=== PATIENT | male | born 1950 | race Caucasian/White ===

== ENCOUNTER 2017-06-26 10:12 | Emergency (ER) | payer MEDICARE, OTHER ==
[2017-06-26] MEDS ORDERED: SODIUM CHLORIDE 0.9% 500 ML IV ONE (10:35)
--- NOTE | 2017-06-26 10:36 | ED ---
General Adult HPI - General Chief complaint: Arrhythmia/Palpitations Stated complaint: A fib Time Seen by Provider: 06/26/17 10:20 Source: patient, RN notes reviewed, old records reviewed Mode of arrival: wheelchair Limitations: physical limitation - History of Present Illness Initial comments: 67-year-old male history of A. fib presents with palpitations and racing heartbeat. Patient does have an application on his phone that the techs A. fib , he states he used this and noted that he was in atrial fibrillation. He is currently on metoprolol and flecainide. He denies missing any of these medications. He has been prescribed Eliquis but has not taken this in the past several weeks. Patient denies chest pain. Denies dyspnea. Denies any lower extremity pain or swelling. Denies fever or chills. Denies cough or URI symptoms. Denies headache or vision changes. - Related Data Home Medications Medication Instructions Recorded Confirmed Atorvastatin [Lipitor] 20 mg PO HS 04/02/14 06/26/17 Ginko Biloba 1 tab PO BID 04/02/14 06/26/17 HYDROcodone/APAP 10-325MG [[place] 1 tab PO DAILY PRN 04/02/14 06/26/17 10] amLODIPine [Norvasc] 5 mg PO DAILY 04/02/14 06/26/17 fentaNYL 50MCG/HR PATCH [Duragesic 1 patch TRANSDERM Q72H 04/02/14 06/26/17 50Mcg/Hr Patch] Metoprolol Succinate [Toprol XL] 50 mg PO BID 04/15/14 06/26/17 Citalopram Hydrobromide [CeleXA] 20 mg PO DAILY 06/26/17 06/26/17 Flecainide [Tambocor] 50 mg PO BID 06/26/17 06/26/17 Ginkgo Biloba [place] Extract [Ginkgo] 120 mg PO BID 06/26/17 06/26/17 Allergies Allergy/AdvReac Type Severity Reaction Status Date / Time No Known Allergies Allergy Verified 06/26/17 11:06 Review of Systems ROS Statement: Those systems with pertinent positive or pertinent negative responses have been documented in the HPI. ROS Other: All systems not noted in ROS Statement are negative. Past Medical History Past Medical History: Atrial Fibrillation, Cancer, Hyperlipidemia, Hypertension Additional Past Medical History / Comment(s): chronic back pain, prostate cancer History of Any Multi-Drug Resistant Organisms: None Reported Past Surgical History: Appendectomy, Back Surgery, Prostate Surgery Past Anesthesia/Blood Transfusion Reactions: No Reported Reaction Past Psychological History: Depression Smoking Status: Current some day smoker Past Alcohol Use History: Occasional Past Drug Use History: None Reported - Past Family History Brother(s) Family Medical History: Cancer Additional Family Medical History / Comment(s): prostate Mother Family Medical History: Cancer Additional Family Medical History / Comment(s): breast General Exam Limitations: physical limitation General appearance: alert, in no apparent distress Head exam: Present: atraumatic, normocephalic Eye exam: Present: normal appearance, PERRL ENT exam: Present: normal exam Neck exam: Present: normal inspection. Absent: tenderness, meningismus Respiratory exam: Present: normal lung sounds bilaterally. Absent: respiratory distress, wheezes Cardiovascular Exam: Present: tachycardia, irregular rhythm GI/Abdominal exam: Present: soft. Absent: distended, tenderness, guarding Extremities exam: Present: normal inspection, normal capillary refill. Absent: pedal edema, calf tenderness Neurological exam: Present: alert, oriented X3. Absent: CN II-XII intact, motor sensory deficit Psychiatric exam: Present: normal affect, normal mood Skin exam: Present: warm, dry, intact. 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 fib with RVR and PVC. Ventricular rate of 120, QRS duration 86, QTC 472. Repeat EKG obtained at 1150, atrial fibrillation ventricular rate of 82, QRS duration 76, QTC 429, no ST segment elevation or depression. Rate controlled A. fib Medical Decision Making - Medical Decision Making 67 yo male presenting with palpitations. Initial EKG shows atrial fibrillation with RVR. Patient is given 500 mL normal saline bolus and 2.5 of metoprolol. He did take his flecainide and metoprolol this morning. He has not been taking his Eliquis for the past several weeks. Workup in the emergency department: Chest x-ray, negative for acute cardiopulmonary disease, normal white blood cell count, stable he will, negative troponin. Patient did develop a moment of superior anterior chest pain which was very minimal. Lasted just minutes while in the emergency department. He has no pain and his palpitations are resolving. Patient is offered observation for cardiology consultation. He prefers outpatient follow-up. He will restart his Eliquis, he will return with any worsening or changing symptoms: Including chest pain, palpitations or dyspnea. - Lab Data Result diagrams: 06/26/17 10:35 06/26/17 10:35 Lab Results 06/26/17 06/26/17 06/26/17 Range/Units 10:35 10:35 10:35 WBC 5.2 (3.8-10.6) k/uL RBC 5.58 (4.30-5.90) m/uL Hgb 15.1 (13.0-17.5) gm/dL Hct 46.5 (39.0-53.0) % MCV 83.3 (80.0-100.0) fL MCH 27.0 (25.0-35.0) pg MCHC 32.4 (31.0-37.0) g/dL RDW 13.7 (11.5-15.5) % Plt Count 223 (150-450) k/uL Neutrophils % 63 % Lymphocytes % 24 % Monocytes % 8 % Eosinophils % 2 % Basophils % 1 % Neutrophils # 3.3 (1.3-7.7) k/uL Lymphocytes # 1.3 (1.0-4.8) k/uL Monocytes # 0.4 (0-1.0) k/uL Eosinophils # 0.1 (0-0.7) k/uL Basophils # 0.1 (0-0.2) k/uL PT (9.0-12.0) sec INR (<1.2) APTT (22.0-30.0) sec Sodium 141 (137-145) mmol/L Potassium 4.9 (3.5-5.1) mmol/L Chloride 106 (98-107) mmol/L Carbon Dioxide 22 (22-30) mmol/L Anion Gap 13 mmol/L BUN 16 (9-20) mg/dL Creatinine 0.76 (0.66-1.25) mg/dL Est GFR (CKD-EPI)AfAm >90 (>60 ml/min/1.73 sqM) Est GFR (CKD-EPI)NonAf >90 (>60 ml/min/1.73 sqM) Glucose 145 H (74-99) mg/dL Calcium 9.5 (8.4-10.2) mg/dL Magnesium 2.4 H (1.6-2.3) mg/dL Total Bilirubin 0.7 (0.2-1.3) mg/dL AST 40 (17-59) U/L ALT 36 (21-72) U/L Alkaline Phosphatase 49 (38-126) U/L Total Creatine Kinase 126 (55-170) U/L CK-MB (CK-2) 0.9 (0.0-2.4) ng/mL CK-MB (CK-2) Rel Index 0.7 Troponin I <0.012 (0.000-0.034) ng/mL Total Protein 7.4 (6.3-8.2) g/dL Albumin 4.3 (3.5-5.0) g/dL 06/26/17 Range/Units 10:35 WBC (3.8-10.6) k/uL RBC (4.30-5.90) m/uL Hgb (13.0-17.5) gm/dL Hct (39.0-53.0) % MCV (80.0-100.0) fL MCH (25.0-35.0) pg MCHC (31.0-37.0) g/dL RDW (11.5-15.5) % Plt Count (150-450) k/uL Neutrophils % % Lymphocytes % % Monocytes % % Eosinophils % % Basophils % % Neutrophils # (1.3-7.7) k/uL Lymphocytes # (1.0-4.8) k/uL Monocytes # (0-1.0) k/uL Eosinophils # (0-0.7) k/uL Basophils # (0-0.2) k/uL PT 10.2 (9.0-12.0) sec INR 1.0 (<1.2) APTT 24.9 (22.0-30.0) sec Sodium (137-145) mmol/L Potassium (3.5-5.1) mmol/L Chloride (98-107) mmol/L Carbon Dioxide (22-30) mmol/L Anion Gap mmol/L BUN (9-20) mg/dL Creatinine (0.66-1.25) mg/dL Est GFR (CKD-EPI)AfAm (>60 ml/min/1.73 sqM) Est GFR (CKD-EPI)NonAf (>60 ml/min/1.73 sqM) Glucose (74-99) mg/dL Calcium (8.4-10.2) mg/dL Magnesium (1.6-2.3) mg/dL Total Bilirubin (0.2-1.3) mg/dL AST (17-59) U/L ALT (21-72) U/L Alkaline Phosphatase (38-126) U/L Total Creatine Kinase (55-170) U/L CK-MB (CK-2) (0.0-2.4) ng/mL CK-MB (CK-2) Rel Index Troponin I (0.000-0.034) ng/mL Total Protein (6.3-8.2) g/dL Albumin (3.5-5.0) g/dL Disposition Clinical Impression: Atrial fibrillation Disposition: HOME SELF-CARE Condition: Fair Instructions: Palpitations (ED), A-fib (Atrial Fibrillation) (ED) Is patient prescribed a controlled substance at discharge?: No Referrals: Carlos Pedroza DO [Primary Care Provider] - 1-2 days Carlitos Beavers MD [STAFF PHYSICIAN] - 1-2 days Time of Disposition: 11:50
[2017-06-26 10:57] LABS: Basophils # (A) 0.1 k/uL (0-0.2); Basophils % (A) 1 %; Eosinophils # (A) 0.1 k/uL (0-0.7); Eosinophils % (A) 2 %; HCT 46.5 % (39.0-53.0); HGB 15.1 gm/dL (13.0-17.5); Lymphocytes # (A) 1.3 k/uL (1.0-4.8); Lymphocytes % (A) 24 %; MCHC 32.4 g/dL (31.0-37.0); MCV 83.3 fL (80.0-100.0); Mean Platelet Volume 7.1; Monocytes # (A) 0.4 k/uL (0-1.0); Monocytes % (A) 8 %; Neutrophils # (A) 3.3 k/uL (1.3-7.7); Neutrophils % (A) 63 %; Platelet Count 223 k/uL (150-450); RBC 5.58 m/uL (4.30-5.90); RDW 13.7 % (11.5-15.5); WBC 5.2 k/uL (3.8-10.6)
[2017-06-26] MEDS ORDERED: METOPROLOL TARTRATE 5 MG/5 ML VIAL IVP STA (11:03)
[2017-06-26 11:04] LABS: ALT 36 U/L (21-72); AST 40 U/L (17-59); Albumin 4.3 g/dL (3.5-5.0); Alkaline Phosphatase 49 U/L (38-126); Anion Gap 13 mmol/L; Blood Urea Nitrogen 16 mg/dL (9-20); Calcium 9.5 mg/dL (8.4-10.2); Carbon Dioxide 22 mmol/L (22-30); Chloride 106 mmol/L (98-107); Glucose 145 mg/dL (74-99); Magnesium 2.4 mg/dL (1.6-2.3); Sodium 141 mmol/L (137-145); Total Bilirubin 0.7 mg/dL (0.2-1.3); Total Protein 7.4 g/dL (6.3-8.2)
[2017-06-26 11:06] LABS: Potassium 4.9 mmol/L (3.5-5.1)
[2017-06-26 11:16] LABS: Creatine Kinase 126 U/L (55-170)
--- NOTE | 2017-06-26 11:18 | XR ---
EXAMINATION TYPE: XR chest 2V DATE OF EXAM: 06/26/2017 COMPARISON: Prior chest x-ray May 06, 2013. HISTORY: Atrial fibrillation and dysrhythmia. TECHNIQUE: Frontal and lateral views of the chest are obtained. FINDINGS: There is no focal air space opacity, pleural effusion, or pneumothorax seen. The cardiac silhouette size is stable and within normal limits. The osseous structures are intact. IMPRESSION: No acute cardiopulmonary process. No significant change from prior.
[2017-06-26 11:24] LABS: Partial Thromboplastin Time 24.9 sec (22.0-30.0); Prothrombin Time 10.2 sec (9.0-12.0)
[2017-06-26 11:29] LABS: Creatine Kinase MB 0.9 ng/mL (0.0-2.4); Troponin I <0.012 ng/mL (0.000-0.034)
[2017-06-26 12:14] VITALS: BP 129/85; PULSE 89; RESP 18; TEMP 97.8
== END 2017-06-26 12:20 | disposition home or self-care (01) ==
LOC: EC 10:12
DX: I48.91 Unspecified atrial fibrillation (principal); E78.5 Hyperlipidemia, unspecified; I10 Essential (primary) hypertension; F32.9 Major depressive disorder, single episode, unspecified; F17.200 Nicotine dependence, unspecified, uncomplicated; Z85.46 Personal history of malignant neoplasm of prostate; Z79.891 Long term (current) use of opiate analgesic; Z79.899 Other long term (current) drug therapy
CPT/HCPCS: 36415; 71046; 80053; 82550; 82553; 83735; 84484; 85025; 85610; 85730; 93005; 96361; 96374; 99285

== ENCOUNTER 2017-12-07 13:26 | Observation (INO) | payer MEDICARE, OTHER ==
--- NOTE | 2017-12-07 13:48 | ED ---
General Adult HPI - General Chief complaint: Chest Pain Stated complaint: Chest pain Time Seen by Provider: 12/07/17 13:34 Source: patient, RN notes reviewed, old records reviewed Mode of arrival: ambulatory Limitations: no limitations - History of Present Illness Initial comments: 67-year-old male presents for evaluation of palpitations and mild chest discomfort. Patient's symptoms 7 present for the past 5 hours. He does have history of A. fib and is currently on xARELTO, he has no known history of CAD. Patient denies any preceding symptoms, no cough, no fever, no dyspnea. He did call his bond writer who recommended he presented to the emergency department for evaluation. He hasn't On his phone and they told him that he was in an irregular heartbeat. No nausea vomiting or diarrhea. No change in medications. - Related Data Home Medications Medication Instructions Recorded Confirmed Atorvastatin [Lipitor] 20 mg PO HS 04/02/14 12/07/17 HYDROcodone/APAP 10-325MG [[place] 1 tab PO DAILY PRN 04/02/14 12/07/17 10] amLODIPine [Norvasc] 5 mg PO DAILY 04/02/14 12/07/17 fentaNYL 50MCG/HR PATCH [Duragesic 1 patch TRANSDERM Q72H 04/02/14 12/07/17 50Mcg/Hr Patch] Metoprolol Succinate [Toprol XL] 50 mg PO BID 04/15/14 12/07/17 Flecainide [Tambocor] 50 mg PO BID 06/26/17 12/07/17 Rivaroxaban [Xarelto] 20 mg PO HS 12/07/17 12/07/17 Allergies Allergy/AdvReac Type Severity Reaction Status Date / Time No Known Allergies Allergy Verified 12/07/17 13:31 Review of Systems ROS Statement: Those systems with pertinent positive or pertinent negative responses have been documented in the HPI. ROS Other: All systems not noted in ROS Statement are negative. Past Medical History Past Medical History: Atrial Fibrillation, Cancer, Hyperlipidemia, Hypertension Additional Past Medical History / Comment(s): chronic back pain, prostate cancer History of Any Multi-Drug Resistant Organisms: None Reported Past Surgical History: Appendectomy, Back Surgery, Prostate Surgery Past Anesthesia/Blood Transfusion Reactions: No Reported Reaction Past Psychological History: Depression Smoking Status: Current some day smoker Past Alcohol Use History: Occasional Past Drug Use History: None Reported - Past Family History Brother(s) Family Medical History: Cancer Additional Family Medical History / Comment(s): prostate Mother Family Medical History: Cancer Additional Family Medical History / Comment(s): breast General Exam Limitations: no limitations General appearance: alert, in no apparent distress Head exam: Present: atraumatic, normocephalic Eye exam: Present: normal appearance, PERRL, EOMI ENT exam: Present: normal exam Neck exam: Present: normal inspection. Absent: tenderness, meningismus Respiratory exam: Present: normal lung sounds bilaterally. Absent: respiratory distress, wheezes, rales Cardiovascular Exam: Present: regular rate, normal rhythm GI/Abdominal exam: Present: soft. Absent: distended, tenderness, guarding Extremities exam: Present: normal inspection, normal capillary refill. Absent: pedal edema Neurological exam: Present: alert, oriented X3, CN II-XII intact. Absent: motor sensory deficit Psychiatric exam: Present: normal affect, normal mood Skin exam: Present: warm, dry, intact. Absent: cyanosis, diaphoretic Course Vital Signs 12/07/17 12/07/17 12/07/17 13:28 14:11 14:17 Temperature 98.3 F 96.4 F L Pulse Rate 68 66 Pulse Rate [ 72 Pulse Oximetery ] Respiratory 18 16 Rate Blood Pressure 139/93 124/74 O2 Sat by Pulse 98 98 Oximetry EKG Findings - EKG Comments: EKG Findings:: EKG: Normal sinus rhythm, no ST segment elevation or depression, rate of 67, MT interval 206, QRS duration 90, QTC 431 Medical Decision Making - Medical Decision Making 61 sexual male presenting with chief complaint of palpitations and some mild central chest tightness. Patient does have history of atrial fibrillation, he is on anticoagulation. EKG is normal sinus rhythm. Workup in the emergency department reveals normal CBC, normal CMP, troponin is negative. Chest x-ray negative for acute cardiopulmonary disease. Patient's is anticoagulated, he will be admitted for serial cardiac enzymes and cardiology consultation. - Lab Data Result diagrams: 12/07/17 14:00 12/07/17 15:03 Lab Results 12/07/17 12/07/17 12/07/17 Range/Units 14:00 14:00 14:00 WBC 5.0 (3.8-10.6) k/uL RBC 5.48 (4.30-5.90) m/uL Hgb 15.1 (13.0-17.5) gm/dL Hct 47.4 (39.0-53.0) % MCV 86.4 (80.0-100.0) fL MCH 27.6 (25.0-35.0) pg MCHC 31.9 (31.0-37.0) g/dL RDW 13.6 (11.5-15.5) % Plt Count 267 (150-450) k/uL Neutrophils % 74 % Lymphocytes % 15 % Monocytes % 7 % Eosinophils % 2 % Basophils % 1 % Neutrophils # 3.7 (1.3-7.7) k/uL Lymphocytes # 0.8 L (1.0-4.8) k/uL Monocytes # 0.3 (0-1.0) k/uL Eosinophils # 0.1 (0-0.7) k/uL Basophils # 0.1 (0-0.2) k/uL PT (9.0-12.0) sec INR (<1.2) APTT (22.0-30.0) sec Sodium (137-145) mmol/L Potassium (3.5-5.1) mmol/L Chloride (98-107) mmol/L Carbon Dioxide (22-30) mmol/L Anion Gap mmol/L BUN (9-20) mg/dL Creatinine (0.66-1.25) mg/dL Est GFR (CKD-EPI)AfAm (>60 ml/min/1.73 sqM) Est GFR (CKD-EPI)NonAf (>60 ml/min/1.73 sqM) Glucose (74-99) mg/dL Calcium (8.4-10.2) mg/dL Magnesium (1.6-2.3) mg/dL Total Bilirubin (0.2-1.3) mg/dL AST (17-59) U/L ALT (21-72) U/L Alkaline Phosphatase (38-126) U/L Total Creatine Kinase 121 (55-170) U/L CK-MB (CK-2) 0.8 (0.0-2.4) ng/mL CK-MB (CK-2) Rel Index 0.7 Troponin I 0.013 (0.000-0.034) ng/mL NT-Pro-B Natriuret Pep 108 pg/mL Total Protein (6.3-8.2) g/dL Albumin (3.5-5.0) g/dL 12/07/17 12/07/17 Range/Units 14:00 15:03 WBC (3.8-10.6) k/uL RBC (4.30-5.90) m/uL Hgb (13.0-17.5) gm/dL Hct (39.0-53.0) % MCV (80.0-100.0) fL MCH (25.0-35.0) pg MCHC (31.0-37.0) g/dL RDW (11.5-15.5) % Plt Count (150-450) k/uL Neutrophils % % Lymphocytes % % Monocytes % % Eosinophils % % Basophils % % Neutrophils # (1.3-7.7) k/uL Lymphocytes # (1.0-4.8) k/uL Monocytes # (0-1.0) k/uL Eosinophils # (0-0.7) k/uL Basophils # (0-0.2) k/uL PT 10.5 (9.0-12.0) sec INR 1.1 (<1.2) APTT 28.7 (22.0-30.0) sec Sodium 141 (137-145) mmol/L Potassium 4.8 (3.5-5.1) mmol/L Chloride 110 H (98-107) mmol/L Carbon Dioxide 24 (22-30) mmol/L Anion Gap 7 mmol/L BUN 14 (9-20) mg/dL Creatinine 0.81 (0.66-1.25) mg/dL Est GFR (CKD-EPI)AfAm >90 (>60 ml/min/1.73 sqM) Est GFR (CKD-EPI)NonAf >90 (>60 ml/min/1.73 sqM) Glucose 100 H (74-99) mg/dL Calcium 9.9 (8.4-10.2) mg/dL Magnesium 2.5 H (1.6-2.3) mg/dL Total Bilirubin 0.6 (0.2-1.3) mg/dL AST 33 (17-59) U/L ALT 42 (21-72) U/L Alkaline Phosphatase 62 (38-126) U/L Total Creatine Kinase (55-170) U/L CK-MB (CK-2) (0.0-2.4) ng/mL CK-MB (CK-2) Rel Index Troponin I (0.000-0.034) ng/mL NT-Pro-B Natriuret Pep pg/mL Total Protein 7.5 (6.3-8.2) g/dL Albumin 4.5 (3.5-5.0) g/dL Disposition Clinical Impression: Chest pain Disposition: ADMITTED IP TO THIS HOSP Condition: Stable Is patient prescribed a controlled substance at d/c from ED?: No Referrals: Carlos Pedroza DO [Primary Care Provider] - 1-2 days Decision to Admit Reason: Admit from EC Decision Date: 12/07/17 Decision Time: 16:10
--- NOTE | 2017-12-07 14:22 | XR ---
EXAMINATION TYPE: XR chest 2V DATE OF EXAM: 12/07/2017 COMPARISON: 06/26/2017 HISTORY: Chest pain TECHNIQUE: Frontal and lateral views of the chest are obtained. FINDINGS: There is no focal air space opacity. No evidence for pneumothorax. No pleural effusion. The cardiac silhouette size is within normal limits. The osseous structures are grossly intact. IMPRESSION: 1. No acute cardiopulmonary process.
[2017-12-07 14:46] LABS: Basophils # (A) 0.1 k/uL (0-0.2); Basophils % (A) 1 %; Eosinophils # (A) 0.1 k/uL (0-0.7); Eosinophils % (A) 2 %; HCT 47.4 % (39.0-53.0); HGB 15.1 gm/dL (13.0-17.5); Lymphocytes # (A) 0.8 k/uL (1.0-4.8); Lymphocytes % (A) 15 %; MCH 27.6 pg (25.0-35.0); MCHC 31.9 g/dL (31.0-37.0); MCV 86.4 fL (80.0-100.0); Mean Platelet Volume 8.1; Monocytes # (A) 0.3 k/uL (0-1.0); Monocytes % (A) 7 %; Neutrophils # (A) 3.7 k/uL (1.3-7.7); Neutrophils % (A) 74 %; Platelet Count 267 k/uL (150-450); RBC 5.48 m/uL (4.30-5.90); RDW 13.6 % (11.5-15.5)
[2017-12-07 15:21] LABS: INR 1.1 (<1.2); Partial Thromboplastin Time 28.7 sec (22.0-30.0); Prothrombin Time 10.5 sec (9.0-12.0)
[2017-12-07 15:32] LABS: ALT 42 U/L (21-72); AST 33 U/L (17-59); Albumin 4.5 g/dL (3.5-5.0); Alkaline Phosphatase 62 U/L (38-126); Anion Gap 7 mmol/L; Blood Urea Nitrogen 14 mg/dL (9-20); Calcium 9.9 mg/dL (8.4-10.2); Carbon Dioxide 24 mmol/L (22-30); Chloride 110 mmol/L (98-107); Glucose 100 mg/dL (74-99); Magnesium 2.5 mg/dL (1.6-2.3); Potassium 4.8 mmol/L (3.5-5.1); Sodium 141 mmol/L (137-145); Total Bilirubin 0.6 mg/dL (0.2-1.3); Total Protein 7.5 g/dL (6.3-8.2)
[2017-12-07 15:32] LABS: Creatine Kinase MB 0.8 ng/mL (0.0-2.4); Troponin I 0.013 ng/mL (0.000-0.034)
[2017-12-07] MEDS ORDERED: ACETAMINOPHEN TAB 325 MG TAB PO PRN (16:03)
[2017-12-07] MEDS ORDERED: NALOXONE 0.4 MG/ML 1 ML VIAL IV PRN (16:03)
[2017-12-07] MEDS ORDERED: ONDANSETRON 4 MG/2 ML VIAL IVP PRN (16:03)
[2017-12-07] MEDS ORDERED: ASPIRIN 325 MG TAB PO STA (16:03)
[2017-12-07] MEDS ORDERED: HYDROcodone/APAP 10-325MG 1 EACH TAB PO PRN (16:05)
[2017-12-07] MEDS ORDERED: NITROGLYCERIN SL TABS 0.4 MG TAB SUBLINGUAL PRN (16:05)
[2017-12-07] MEDS: METOPROLOL SUCCINATE (ER) 50 MG TAB.ER.24H PO SCH (19:57)
[2017-12-07] MEDS: FLECAINIDE 50 MG TAB PO SCH (19:57)
[2017-12-07] MEDS ORDERED: ATORVASTATIN 20 MG TAB PO SCH (21:00)
[2017-12-07] MEDS ORDERED: RIVAROXABAN 20 MG TAB PO SCH (21:00)
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
[2017-12-07 21:21] LABS: Creatine Kinase 76 U/L (55-170)
[2017-12-07 21:35] LABS: Creatine Kinase MB 0.8 ng/mL (0.0-2.4); Troponin I <0.012 ng/mL (0.000-0.034)
[2017-12-08 02:10] LABS: Creatine Kinase 64 U/L (55-170)
[2017-12-08 02:23] LABS: Creatine Kinase MB 0.6 ng/mL (0.0-2.4); Troponin I <0.012 ng/mL (0.000-0.034)
[2017-12-08] MEDS: FLECAINIDE 50 MG TAB PO SCH (08:59)
[2017-12-08] MEDS: METOPROLOL SUCCINATE (ER) 50 MG TAB.ER.24H PO SCH (08:59)
[2017-12-08] MEDS ORDERED: amLODIPine 5 MG TAB PO SCH (09:00)
--- NOTE | 2017-12-08 10:54 | ECHOF ---
Referral Reason:chest pain MEASUREMENTS -------- HEIGHT: 172.7 cm WEIGHT: 111.1 kg BP: 128/79 RVIDd: 3.0 cm (< 3.3) IVSd: 1.2 cm (0.6 - 1.1) LVIDd: 4.2 cm (3.9 - 5.3) LVPWd: 1.2 cm (0.6 - 1.1) IVSs: 1.6 cm LVIDs: 2.7 cm LVPWs: 1.8 cm LA Diam: 3.7 cm (2.7 - 3.8) LAESV Index (A-L): 33.79 ml/m Ao Diam: 3.3 cm (2.0 - 3.7) AV Cusp: 2.0 cm (1.5 - 2.6) MV EXCURSION: 14.577 mm (> 18.000) MV EF SLOPE: 69 mm/s (70 - 150) EPSS: 0.3 cm MV E Casimiro: 0.76 m/s MV DecT: 292 ms MV A Casimiro: 0.95 m/s MV E/A Ratio: 0.80 FINDINGS -------- Sinus rhythm. This was a technically adequate study. The left ventricular size is normal. There is borderline concentric left ventricular hypertrophy. Overall left ventricular systolic function is normal with, an EF between 55 - 60 %. The right ventricle is normal in size. LA is moderately dilated 34-39 ml/m2 The right atrium is normal in size. There is mild aortic valve sclerosis. Mild mitral annular calcification present. The tricuspid valve appears structurally normal. There is no pulmonic regurgitation present. The aortic root size is normal. Normal inferior vena cava with normal inspiratory collapse consistent with estimated right atrial pre ssure of 5 mmHg. There is no pericardial effusion. CONCLUSIONS -------- 1. Sinus rhythm. 2. This was a technically adequate study. 3. The left ventricular size is normal. 4. There is borderline concentric left ventricular hypertrophy. 5. Overall left ventricular systolic function is normal with, an EF between 55 - 60 %. 6. The right ventricle is normal in size. 7. LA is moderately dilated 34-39 ml/m2 8. The right atrium is normal in size. 9. There is mild aortic valve sclerosis. 10. Mild mitral annular calcification present. 11. The tricuspid valve appears structurally normal. 12. There is no pulmonic regurgitation present. 13. The aortic root size is normal. 14. Normal inferior vena cava with normal inspiratory collapse consistent with estimated right atrial pressure of 5 mmHg. 15. There is no pericardial effusion. MANAGER GAMES: Deepti Gramajo RDCS
--- NOTE | 2017-12-08 11:13 | CONS ---
CONSULTATION CHIEF COMPLAINT: 1. Chest pain. 2. Palpitations. Gerardo is a 67-year-old gentleman with history of paroxysmal atrial fibrillation, who presented to hospital as he initially felt that he had irregular heart rhythm, as he felt that he had irregular heart rhythm on his physical exam and subsequently when he connected himself to a cell phone, he had irregular beats. He also felt vague chest discomfort, sharp, mild intensity, unassociated with diaphoresis, unrelated to exertion without definite radiation to neck, back. Came to hospital and got admitted. At the time of my evaluation, he is pain free, hemodynamically stable and in no apparent distress. Cardiac enzymes have been negative. EKG shows sinus rhythm without acute ST- T wave changes and he was never really found to be in atrial fibrillation. PAST MEDICAL HISTORY: Significant for paroxysmal atrial fibrillation. CURRENT MEDICATIONS: Include Xarelto 20 mg daily, Norvasc 5 mg daily, metoprolol 50 b.i.d., [place], flecainide 50 b.i.d., Lipitor 20 q. daily. ALLERGIES: There are no known drug allergies. FAMILY HISTORY: Negative for premature coronary artery disease. SOCIAL HISTORY: Denies smoking, ETOH abuse or drug abuse. REVIEW OF SYSTEMS: HEENT is unremarkable. CARDIAC: As described above. RESPIRATORY: Negative. GI: Negative. GENITOURINARY: Negative. ALLERGY/IMMUNOLOGY; Negative. SKIN: Negative. MUSCULOSKELETAL: Negative. ENDOCRINE: Negative. DERM: Negative. CONSTITUTIONAL: Negative. ONCOLOGICAL: Negative. Rest of the system review is not relevant. PHYSICAL EXAM: Patient is comfortable at rest. Afebrile. Vital signs are stable. Chest exam reveals good air entry bilaterally. Heart exam reveals first and second heart sounds. No gallop. No murmur. No rub. Abdomen is soft, nontender. Exam of extremities did not reveal edema. Peripheral pulses are felt. 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 LABS: Show that the hemoglobin is 15.1, potassium is 4.8, creatinine is 0.8. Three sets of troponins are negative. ASSESSMENT: 1. Chest pain, atypical, myocardial infarction is ruled out. Patient is stable to be discharged home and will consider an outpatient stress test. He will have an echocardiogram prior to discharge. 2. Paroxysmal atrial fibrillation. PLAN: Patient is on flecainide and anticoagulant, which he is going to continue. MMODL / IJN: [id number] /
[2017-12-08 12:15] VITALS: BP 104/67; PULSE 59; RESP 18; TEMP 98.4
--- NOTE | 2017-12-09 07:47 | DS ---
DISCHARGE SUMMARY DATE OF ADMISSION: 12/07/17 DATE OF DISCHARGE: 12/08/17. FINAL DIAGNOSES: 1. Anterior chest wall pain, cannot rule out angina from underlying atrial fibrillation. 2. Paroxysmal atrial fibrillation currently in sinus rhythm. 3. Obesity; BMI 37.3. 4. Hyperlipidemia. 5. Essential hypertension. 6. Chronic low back pain from arthritis. 7. Colonic diverticulosis. 8. Obstructive sleep apnea does not use CPAP machine. HOSPITAL COURSE: This patient with known history of atrial fibrillation on medications for the same including Xarelto presented with episode of palpitations associated with chest pain. Troponins remained negative. 2D echocardiogram unremarkable. Preserved LV function. Seen by Dr. Belle. The patient to have an outpatient stress test. Care was discussed with the patient's . Questions were answered. The patient is up and about. PHYSICAL EXAMINATION: Temperature 98.4, pulse 59, respiratory 18, blood pressure 104/67. DISCHARGE MEDICATIONS: 1. Lipitor 20 mg q.h.s. 2. [place] 10 1 tablet p.o. daily p.r.n. 3. Norvasc 5 mg daily. 4. Duragesic patch 50 q.72 hours. 5. Toprol-XL 50 mg b.i.d. 6. Flecainide 50 mg b.i.d. 7. Xarelto 20 mg q.h.s. 8. Nitrostat 0.4 sublingual q.5 p.r.n. Outpatient stress test per Dr. Belle. Follow with bureau chief in 1 week. Follow up with Dr. Pedroza in 1 week. Outpatient stress test being arranged by Dr. Belle. MMODL / LAMN: [id number] /
== END 2017-12-08 14:40 | disposition home or self-care (01) ==
LOC: EC 13:26 → 3OBS 16:03 → 3SUR 19:25
PROVIDERS: ADMIT Hospitalist; ATTEND Hospitalist
DX: R07.89 Other chest pain (principal); I48.0 Paroxysmal atrial fibrillation; I10 Essential (primary) hypertension; E78.5 Hyperlipidemia, unspecified; G89.29 Other chronic pain; M54.40 Lumbago with sciatica, unspecified side; G47.33 Obstructive sleep apnea (adult) (pediatric); F40.240 Claustrophobia; K57.30 Diverticulosis of large intestine without perforation or abscess without bleeding; Z68.37 Body mass index [BMI] 37.0-37.9, adult; E66.9 Obesity, unspecified; F32.9 Major depressive disorder, single episode, unspecified; Z79.01 Long term (current) use of anticoagulants; Z79.899 Other long term (current) drug therapy; Z79.891 Long term (current) use of opiate analgesic; Z85.46 Personal history of malignant neoplasm of prostate; Z90.89 Acquired absence of other organs; Z87.19 Personal history of other diseases of the digestive system; Z87.891 Personal history of nicotine dependence; Z87.820 Personal history of traumatic brain injury; Z87.81 Personal history of (healed) traumatic fracture; Z80.3 Family history of malignant neoplasm of breast; Z80.42 Family history of malignant neoplasm of prostate
CPT/HCPCS: 99285; 36415; 93005; 93306; 83880; 80053; 82550 ×2; 82553 ×2; 83735; 84484 ×2; 85025; 85610; 85730; 71046; G0378 ×2

== ENCOUNTER 2018-07-14 06:30 | Emergency (ER) | payer MEDICARE, OTHER ==
[2018-07-14 07:14] LABS: Appearance,Urine Turbid (Clear); Bacteria,Urine Rare /hpf; Bilirubin,Urine Negative (Negative); Blood,Urine Large (Negative); Color,Urine Red; Glucose,Urine (UA) Negative (Negative); Ketones,Urine 1+ (Negative); Leukocyte Esterase,Urine Large (Negative); Mucus,Urine Rare /hpf; Nitrite,Urine Negative (Negative); Protein,Urine 2+ (Negative); RBC,Urine >182 /hpf (0-5); Urobilinogen,Urine <2.0 mg/dL (<2.0); WBC,Urine >182 /hpf (0-5)
[2018-07-14 07:18] LABS: Specific Gravity,Urine 1.016 (1.001-1.035)
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
[2018-07-14] MEDS ORDERED: cefTRIAXone IN SWFI 1,000 MG/10 ML SYRINGE IVP STA (07:36)
[2018-07-14] MEDS ORDERED: SODIUM CHLORIDE 0.9% 1,000 ML IV ONE (07:46)
[2018-07-14 07:50] LABS: Basophils # (A) 0.1 k/uL (0-0.2); Basophils % (A) 1 %; Eosinophils # (A) 0.1 k/uL (0-0.7); Eosinophils % (A) 2 %; HCT 41.9 % (39.0-53.0); HGB 13.8 gm/dL (13.0-17.5); Lymphocytes % (A) 16 %; MCH 27.9 pg (25.0-35.0); MCHC 32.9 g/dL (31.0-37.0); MCV 84.8 fL (80.0-100.0); Mean Platelet Volume 6.8; Monocytes # (A) 0.4 k/uL (0-1.0); Monocytes % (A) 7 %; Neutrophils # (A) 4.6 k/uL (1.3-7.7); Neutrophils % (A) 73 %; Platelet Count 226 k/uL (150-450); RBC 4.94 m/uL (4.30-5.90); RDW 13.8 % (11.5-15.5); WBC 6.3 k/uL (3.8-10.6)
--- NOTE | 2018-07-14 07:59 | CT ---
EXAMINATION TYPE: CT abdomen pelvis wo con DATE OF EXAM: 07/14/2018 COMPARISON: NONE HISTORY: Hematuria, history of prostate cancer CT DLP: 989.7 mGycm Automated exposure control for dose reduction was used. FINDINGS: There is a tiny 2.6 mm subpleural nodule in the lateral aspect of the right lung in the fir st image. There is some atelectasis or early consolidation at the right lung base. There is no pleura l or pericardial fluid. The heart is not enlarged. Within the abdomen, there is a 1.8 cm ring calcified gallstone within the gallbladder. Liver and sple en are normal. Both adrenal glands are normal. There is no evidence of hydronephrosis or nephrolithiasis. Limited views of the gallbladder appear normal. There is no significant retroperitoneal, iliac or inguinal adenopathy. The bladder is not distended. The prostate gland is not visualized. There are scattered diverticula present within the sigmoid:. There are also scattered diverticula pre sent along the left side of the colon. There is no evidence of diverticulitis. The appendix is not vi sualized with certainty. Small bowel loops are of normal caliber There is a Median ventral hernia containing fat only with a mouth measuring 1.3 cm. Direct inguinal hernia on the right containing fat only. There is no free fluid and no free air. There is degenerative disc disease and a vacuum phenomena present at L5-S1. There is mild wedging of the L1 vertebral body. There is degenerative disc disease in the lower dorsal spine there is facet ar thropathy within the lumbar spine. No bony destructive lesion or sclerotic metastases are identified. IMPRESSION: 1. TINY, 2.6 MM SUBCUTANEOUS PLEURAL NODULE WITHIN THE RIGHT LUNG. A FULL CT OF THE CHEST WOULD BE MELTON GGESTED. 2. CHOLELITHIASIS. 3. INCOMPLETE ASSESSMENT OF THE BLADDER. IN LIGHT OF THE PATIENT'S HISTORY, DIRECT VISUALIZATION WOUL D BE SUGGESTED. 4. MINIMAL, UNCOMPLICATED DIVERTICULOSIS OF THE LEFT SIDE OF THE COLON. 5. PARAMEDIAN VENTRAL HERNIA ON THE RIGHT CONTAINING FAT ONLY WITH A MOUTH MEASURING 1.3 CM. 6. DIRECT INGUINAL HERNIA ON THE RIGHT CONTAINING FAT ONLY. 7. DEGENERATIVE CHANGES WITHIN THE SPINE.
[2018-07-14 08:00] LABS: Anion Gap 6 mmol/L; Blood Urea Nitrogen 17 mg/dL (9-20); Calcium 9.1 mg/dL (8.4-10.2); Carbon Dioxide 28 mmol/L (22-30); Chloride 107 mmol/L (98-107); Glucose 97 mg/dL (74-99); Potassium 4.2 mmol/L (3.5-5.1); Sodium 141 mmol/L (137-145)
[2018-07-14 08:06] LABS: INR 0.9 (<1.2); Partial Thromboplastin Time 29.1 sec (22.0-30.0); Prothrombin Time 10.1 sec (9.0-12.0)
[2018-07-14 09:12] VITALS: BP 132/80; PULSE 70; RESP 18; TEMP 98
== END 2018-07-14 09:49 | disposition home or self-care (01) ==
LOC: EC 06:30
DX: N39.0 Urinary tract infection, site not specified (principal); E78.5 Hyperlipidemia, unspecified; I10 Essential (primary) hypertension; I48.91 Unspecified atrial fibrillation; Z87.891 Personal history of nicotine dependence; Z79.01 Long term (current) use of anticoagulants; Z79.899 Other long term (current) drug therapy; Z90.79 Acquired absence of other genital organ(s); Z85.46 Personal history of malignant neoplasm of prostate
CPT/HCPCS: 51798; 36415; 80048; 85025; 85610; 85730; 81001; 87086; 74176; 99284; 96374; 96361; J0696; 87077; 87186

== ENCOUNTER → 2018-08-30 | Outpatient (CLI) | payer MEDICARE ==
[2018-08-30 10:46] LABS: African American GFR (CKD) >90 (>60 ml/min/1.73 sqM); Blood Urea Nitrogen 18 mg/dL (9-20)
--- NOTE | 2018-08-30 12:32 | CT ---
EXAMINATION TYPE: CT chest w con DATE OF EXAM: 08/30/2018 COMPARISON: CT abdomen pelvis 07/14/2018 HISTORY: Pulmonary nodule CT DLP: 743 mGycm Automated exposure control for dose reduction was used. CONTRAST: CT scan of the chest is performed with IV Contrast, patient injected with 100 mL of Isovue 300. FINDINGS: LUNGS: The lungs are grossly clear, there is no concerning parenchymal mass or nodule identified. T here is no pleural effusion or pneumothorax seen. The tracheobronchial tree is patent. MEDIASTINUM: There are no greater than 1 cm hilar or mediastinal lymph nodes. No pericardial effusi on is seen. AORTA: No additional significant abnormality is seen. OTHER: Noncalcified gallstone noted in the gallbladder. IMPRESSION: No suspicious pulmonary nodule. The previous identified focus likely related to pleural reflection.
== END | disposition home or self-care (01) ==
LOC: RADCTMAIN 09:31
PROVIDERS: ATTEND Family Medicine
DX: R91.1 Solitary pulmonary nodule (principal); Z13.9 Encounter for screening, unspecified
CPT/HCPCS: 82565; 84520; 71260; 36415; Q9967

== ENCOUNTER → 2018-11-06 | Outpatient (CLI) | payer MEDICARE ==
--- NOTE | 2018-11-06 19:13 | US ---
EXAMINATION TYPE: US abdomen complete DATE OF EXAM: 11/06/2018 COMPARISON: CT CLINICAL HISTORY: R10.12 LUQ Abdominal Pain. EXAM MEASUREMENTS: Liver Length: 13.7 cm Gallbladder Wall: 0.2 cm CBD: 0.2 cm Spleen: 11.2 cm Right Kidney: 11.4 x 6.5 x 6.4 cm Left Kidney: 11.3 x 6.5 x 4.9 cm Pancreas: hyperechoic Liver: no masses seen Gallbladder: large, shadowing, mobile stone is present and size = 3.0 x 1.2 x 2.4cm Evidence for sonographic Briggs's sign: no CBD: wnl Spleen: wnl Right Kidney: No hydronephrosis or masses seen Left Kidney: No hydronephrosis or masses seen Upper IVC: wnl Abd Aorta: wnl IMPRESSION: 1. Cholelithiasis.
== END | disposition home or self-care (01) ==
LOC: RADUSWWP 07:40
PROVIDERS: ATTEND Family Medicine
DX: K80.20 Calculus of gallbladder without cholecystitis without obstruction (principal)
CPT/HCPCS: 76700

== ENCOUNTER → 2019-04-28 | Outpatient (CLI) | payer MEDICARE ==
[2019-04-28 15:26] LABS: Creatine Kinase MB 0.6 ng/mL (0.0-2.4); Troponin I <0.012 ng/mL (0.000-0.034)
== END | disposition home or self-care (01) ==
LOC: LABWHC1 14:10
PROVIDERS: ATTEND Nurse Practitioner Family
DX: C61 Malignant neoplasm of prostate (principal); R07.9 Chest pain, unspecified; Z51.81 Encounter for therapeutic drug level monitoring
CPT/HCPCS: 36415; 82553; 84153; 84484; 85379; 93005

== ENCOUNTER 2019-06-28 21:22 | Emergency (ER) | payer MEDICARE ==
[2019-06-28 21:29] VITALS: TEMP 98
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
[2019-06-28] MEDS ORDERED: SODIUM CHLORIDE 0.9% 1,000 ML IV STA (22:08)
[2019-06-28] MEDS ORDERED: diphenhydrAMINE 50 MG/ML 1 ML VIAL IVP STA (22:11)
[2019-06-28] MEDS ORDERED: METOCLOPRAMIDE 5 MG/ML 2 ML VIAL IVP STA (22:11)
[2019-06-28 23:38] LABS: Basophils % (A) 1 %; Eosinophils % (A) 1 %; HCT 45.1 % (39.0-53.0); HGB 14.6 gm/dL (13.0-17.5); Lymphocytes % (A) 22 %; MCH 27.7 pg (25.0-35.0); MCHC 32.4 g/dL (31.0-37.0); MCV 85.6 fL (80.0-100.0); Mean Platelet Volume 7.4; Monocytes # (A) 0.4 k/uL (0-1.0); Monocytes % (A) 8 %; Neutrophils % (A) 66 %; Platelet Count 202 k/uL (150-450); RBC 5.27 m/uL (4.30-5.90); WBC 4.6 k/uL (3.8-10.6)
[2019-06-28 23:43] LABS: Appearance,Urine Clear (Clear); Bilirubin,Urine Negative (Negative); Blood,Urine Negative (Negative); Color,Urine Yellow; Glucose,Urine (UA) Negative (Negative); Ketones,Urine Trace (Negative); Leukocyte Esterase,Urine Negative (Negative); Nitrite,Urine Negative (Negative); Protein,Urine Negative (Negative); Specific Gravity,Urine 1.014 (1.001-1.035); Urobilinogen,Urine <2.0 mg/dL (<2.0)
[2019-06-28 23:50] LABS: INR 1.1 (<1.2); Partial Thromboplastin Time 29.6 sec (22.0-30.0); Prothrombin Time 10.9 sec (9.0-12.0)
[2019-06-29 00:04] LABS: ALT 30 U/L (4-49); AST 34 U/L (17-59); African American GFR (CKD) >90 (>60 ml/min/1.73 sqM); Albumin 4.7 g/dL (3.5-5.0); Alkaline Phosphatase 71 U/L (38-126); Anion Gap 10 mmol/L; Blood Urea Nitrogen 9 mg/dL (9-20); Calcium 10.4 mg/dL (8.4-10.2); Carbon Dioxide 25 mmol/L (22-30); Chloride 100 mmol/L (98-107); Glucose 99 mg/dL (74-99); Non-African American GFR(CKD) >90 (>60 ml/min/1.73 sqM); Potassium 4.1 mmol/L (3.5-5.1); Sodium 135 mmol/L (137-145); Total Bilirubin 0.7 mg/dL (0.2-1.3); Total Protein 7.6 g/dL (6.3-8.2)
--- NOTE | 2019-06-29 00:53 | CT ---
EXAMINATION TYPE: CT abdomen pelvis w con DATE OF EXAM: 06/29/2019 COMPARISON: 07/14/2018 HISTORY: abd pain CT DLP: 1503.3 mGycm Automated exposure control for dose reduction was used. CONTRAST: Performed with IV Contrast, patient injected with 100 mL of Isovue 300. Lung bases are clear. There is no pleural effusion. Heart size is normal. There is no pericardial eff usion. Liver spleen stomach pancreas gallbladder appear normal in size and contour. There is probably a 2 cm cholesterol gallstone or mucosal cyst within the gallbladder. There is no adrenal mass. Kidneys show satisfactory contrast opacification. There is no hydronephrosi s. Ureters are not dilated. There is no retroperitoneal adenopathy. Bladder distends smoothly. There is no inguinal hernia. There is no free fluid in the pelvis. Appendix is not definitely seen. No sign of thickened appendix. There is no mesenteric edema. There is no ascites or free air. There are mult iple diverticula of the sigmoid colon. I see no definite sign of diverticulitis. Lumbar vertebra have normal alignment. There is narrowing at L5-S1 disc with vacuum disc. There is no lumbar compression fracture. The bony pelvis appears intact. IMPRESSION: Sigmoid diverticulosis without diverticulitis. Large gallstone or gallbladder cyst. No adverse change compared to old exam.
[2019-06-29 02:04] VITALS: BP 119/67; PULSE 72; RESP 16
== END 2019-06-29 02:02 | disposition home or self-care (01) ==
LOC: EC 21:22
DX: K52.9 Noninfective gastroenteritis and colitis, unspecified (principal); I10 Essential (primary) hypertension; I48.91 Unspecified atrial fibrillation; E78.5 Hyperlipidemia, unspecified; G47.30 Sleep apnea, unspecified; Z79.01 Long term (current) use of anticoagulants; Z79.899 Other long term (current) drug therapy; Z87.891 Personal history of nicotine dependence; Z99.89 Dependence on other enabling machines and devices
CPT/HCPCS: 99284; 96374; 96375; 96361; 36415; 80299; 80053; 83605; 83690; 83735; 85025; 85610; 85730; 81003; 74177; J1200; J2765; Q9967

== ENCOUNTER → 2020-01-14 | Outpatient (CLI) | payer MEDICARE | END | disposition home or self-care (01) | LOC: LABWHC1 08:51 | PROVIDERS: ATTEND Family Medicine | DX: Z20.828 Contact with and (suspected) exposure to other viral communicable diseases (principal) | CPT/HCPCS: U0003; C9803 ==

== ENCOUNTER 2020-08-04 08:27 | Day surgery (SDC) | payer MEDICARE ==
[2020-07-30 11:54] VITALS: BMI 34.4
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
[~2020-08-04 08:27] MED LIST: LIDOCAINE 1% (10MG/ML) FOR IV START INTRADERMA PRN
[2020-08-04 09:20] VITALS: RESP 16; TEMP 98.3
[2020-08-04] MEDS: LACTATED RINGERS 1,000 ML IV SCH ×2 (09:28→09:34)
[2020-08-04] MEDS ORDERED: LIDOCAINE 1% INJ 10MG/ML (20 ML MDV) ONE (09:35)
[2020-08-04] MEDS ORDERED: PROPOFOL 10 MG/ML 20 ML VIAL IV ONE (09:35)
--- NOTE | 2020-08-04 10:25 | P.PCN ---
Date of Procedure: 08/04/20 Description of Procedure: PREOPERATIVE DIAGNOSIS: Colonoscopy screening Family history colon cancer, brothers 2 Chronic anticoagulation POSTOPERATIVE DIAGNOSIS: Ascending colon adenoma Severe pandiverticulosis OPERATION: Colonoscopy to the ileocecal valve and appendiceal orifice, cecum Colonoscopy with hot snare polypectomy SURGEON: Christine Calle MD. ANESTHESIA: MAC. INDICATIONS: The patient is an 70-year-old male who presents family history of colon cancer in two brothers. Last colonoscopy 12 years ago. Benefits and risks were described and informed consent was obtained. DESCRIPTION OF PROCEDURE: The patient had undergone Sutab prep. The patient had been brought into the operating room and laid in the left lateral decubitus position. After adequate intravenous sedation, the rectum was examined with 2% lidocaine jelly. The prostate was unremarkable. No external hemorrhoids were encountered. The rectal tone was within normal limits. No lesions were palpated in the rectal vault. An Olympus colonoscope was advanced until the cecum, ileocecal valve were clearly viewed. The prep was good. Moderate redundancy of sigmoid colon. Severe pandiverticulosis with sigmoid diverticulosis was encountered. Colonic polyps were found and removed. No evidence of focal colitis was found. Retroflexion of the scope demonstrated grade 1 internal hemorrhoids without active bleeding or inflammation. The colon was desufflated. The patient had tolerated the procedure well. Withdrawal time was over 6 minutes. FINDINGS: Aronchick preparation quality scale 2 (1-5) Internal hemorrhoids, grade 1 No external hemorrhoids, grade 4. No arteriovenous malformations. Severe pandiverticulosis with sigmoid diverticulosis Moderate redundancy of sigmoid colon Removal of 1 polyp: - Snare polypectomy ascending colon, 5 mm tubulovillous adenoma polyp. No focal colitis. RECOMMENDATIONS: Repeat colonoscopy 5 years, 2025 Plan - Discharge Summary Discharge Rx Participant: No New Discharge Prescriptions: Continue HYDROcodone/APAP 10-325MG [[place] 10-325] 1 tab PO Q6H PRN PRN Reason: Pain amLODIPine [Norvasc] 5 mg PO QAM Metoprolol Succinate [Toprol XL] 50 mg PO BID Flecainide [Tambocor] 50 mg PO BID Apixaban [Eliquis] 5 mg PO BID Multivitamins, Thera [Multivitamin (formulary)] 1 tab PO DAILY Losartan [Cozaar] 50 mg PO QAM Brain Enhancement Supplement 2 tab PO DAILY Carvedilol [Coreg] 25 mg PO BID Discharge Medication List HYDROcodone/APAP 10-325MG [[place] 10-325] 1 tab PO Q6H PRN 04/02/14 [History] amLODIPine [Norvasc] 5 mg PO QAM 04/02/14 [History] Metoprolol Succinate [Toprol XL] 50 mg PO BID 04/15/14 [History] Flecainide [Tambocor] 50 mg PO BID 06/26/17 [History] Apixaban [Eliquis] 5 mg PO BID 07/14/18 [History] Brain Enhancement Supplement 2 tab PO DAILY 07/30/20 [History] Carvedilol [Coreg] 25 mg PO BID 07/30/20 [History] Losartan [Cozaar] 50 mg PO QAM 07/30/20 [History] Multivitamins, Thera [Multivitamin (formulary)] 1 tab PO DAILY 07/30/20 [History] Follow up Appointment(s)/Referral(s): Christine Calle MD [STAFF PHYSICIAN] - 08/17/20 Patient Instructions/Handouts: Diverticulosis Diet (GEN), Diverticulosis (DC), Colorectal Polyps (DC) Activity/Diet/Wound Care/Special Instructions: START ELIQUIS SundayAUGUST 08. Repeat colonoscopy in 5 years, 2025 Discharge Disposition: HOME SELF-CARE
[2020-08-04 10:41] VITALS: BP 139/81; PULSE 64
== END 2020-08-04 11:03 | disposition home or self-care (01) ==
LOC: ORWHC2ENDO 08:27
PROVIDERS: ATTEND Surgery Plastic and Reconstructive Surgery
DX: Z12.11 Encounter for screening for malignant neoplasm of colon (principal); D12.2 Benign neoplasm of ascending colon; K63.5 Polyp of colon; K57.30 Diverticulosis of large intestine without perforation or abscess without bleeding; K64.0 First degree hemorrhoids; Q43.8 Other specified congenital malformations of intestine; I48.91 Unspecified atrial fibrillation; Z87.19 Personal history of other diseases of the digestive system; E78.5 Hyperlipidemia, unspecified; I10 Essential (primary) hypertension; M19.90 Unspecified osteoarthritis, unspecified site; G47.33 Obstructive sleep apnea (adult) (pediatric); G89.29 Other chronic pain; M54.9 Dorsalgia, unspecified; Z85.46 Personal history of malignant neoplasm of prostate; M54.30 Sciatica, unspecified side; Z87.820 Personal history of traumatic brain injury; Z90.89 Acquired absence of other organs; Z98.890 Other specified postprocedural states; F32.9 Major depressive disorder, single episode, unspecified; F40.240 Claustrophobia; Z80.0 Family history of malignant neoplasm of digestive organs; Z87.891 Personal history of nicotine dependence; Z82.49 Family history of ischemic heart disease and other diseases of the circulatory system; Z80.42 Family history of malignant neoplasm of prostate; Z80.3 Family history of malignant neoplasm of breast; Z79.01 Long term (current) use of anticoagulants; Z79.899 Other long term (current) drug therapy
CPT/HCPCS: 88305; 45385; J2001; J2704

== ENCOUNTER → 2021-05-18 | Outpatient (CLI) | payer MEDICARE ==
[~2021-05-18] MED LIST changes: +IODINE/POTASS IOD (LUGOLS) BOTTLE TOPICAL ONE; -LIDOCAINE 1% (10MG/ML) FOR IV START INTRADERMA PRN
--- NOTE | 2021-05-19 07:19 | NM ---
EXAMINATION TYPE: NM DatScan Brain SPECT DATE OF EXAM: 05/18/2021 COMPARISON: NONE HISTORY: Tremors TECHNIQUE: 10 drops of Lugol's solution was administered 1 hour prior to injection as a thyroid bloc claribel agent. After the administration of 4.4 mCi I-123 Ioflupane DaTscan. Images obtained [address] injection. SPECT images of the brain were acquired with axial and coronal reconstructions. FINDINGS: The axial SPECT images demonstrate increased background activity and reduced activity withi n the bilateral striata. IMPRESSION: Abnormal appearance highly suggestive of idiopathic Parkinson's disease or Parkinsonian s yndrome.
== END | disposition home or self-care (01) ==
LOC: RADNMMAIN 10:31
PROVIDERS: ATTEND Psychiatry & Neurology Neurology
DX: G25.0 Essential tremor (principal)
CPT/HCPCS: 78803; A9584

== ENCOUNTER 2022-05-29 17:06 | Emergency (ER) | payer MEDICARE ==
[2022-05-29 17:13] VITALS: BP 149/93; PULSE 59; RESP 20; TEMP 976
[2022-05-29 19:09] LABS: Basophils % (A) 1 %; Eosinophils # (A) 0.1 k/uL (0-0.7); Eosinophils % (A) 2 %; HGB 14.6 gm/dL (13.0-17.5); Lymphocytes # (A) 1.3 k/uL (1.0-4.8); Lymphocytes % (A) 28 %; MCH 28.4 pg (25.0-35.0); MCHC 33.1 g/dL (31.0-37.0); MCV 85.8 fL (80.0-100.0); Mean Platelet Volume 7.1; Monocytes # (A) 0.4 k/uL (0-1.0); Monocytes % (A) 8 %; Neutrophils # (A) 2.6 k/uL (1.3-7.7); Neutrophils % (A) 58 %; Platelet Count 241 k/uL (150-450); RBC 5.13 m/uL (4.30-5.90); WBC 4.4 k/uL (3.8-10.6)
--- NOTE | 2022-05-29 19:10 | US ---
EXAMINATION TYPE: US venous doppler duplex LE DATE OF EXAM: 05/29/2022 6:54 PM COMPARISON: NONE CLINICAL HISTORY: leg pain. Pt states his right calf has been hurting for 4 days, and then his left c detention started hurting a day or 2 after his right. On blood thinners. No hx of DVT SIDE PERFORMED: Bilateral TECHNIQUE: The lower extremity deep venous system is examined utilizing real time linear array sonog hugo with graded compression, doppler sonography and color-flow sonography. VESSELS IMAGED: Common Femoral Vein Deep Femoral Vein Greater Saphenous Vein * Femoral Vein Popliteal Vein Small Saphenous Vein * Proximal Calf Veins (* superficial vessels) Right Leg: Negative for DVT Left Leg: Negative for DVT IMPRESSION: Grayscale, color doppler, spectral doppler imaging performed of the deep veins of the lo wer extremities. There is normal flow, compressibility, vascular waveforms.
[2022-05-29 19:21] LABS: African American GFR (CKD) >90 (>60 ml/min/1.73 sqM); Anion Gap 8 mmol/L; Blood Urea Nitrogen 17 mg/dL (9-20); Calcium 9.3 mg/dL (8.4-10.2); Carbon Dioxide 27 mmol/L (22-30); Chloride 103 mmol/L (98-107); Glucose 92 mg/dL (74-99); Non-African American GFR(CKD) >90 (>60 ml/min/1.73 sqM); Potassium 4.3 mmol/L (3.5-5.1); Sodium 138 mmol/L (137-145)
--- NOTE | 2022-05-29 20:11 | XR ---
EXAMINATION TYPE: XR tibia fibula bilateral DATE OF EXAM: 05/29/2022 7:42 PM INDICATION: Patient age:Male; 72 years old; Reason for study: fracture; COMPARISON: None TECHNIQUE: The bilateral tibia/fibula was examined in AP and lateral projections. FINDINGS: No evidence of any acute osseous pathology, joint dislocation, or soft tissue swelling is n oted. IMPRESSION: No evidence of acute fracture.
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
== END 2022-05-29 20:43 | disposition home or self-care (01) ==
LOC: EC 17:06
DX: M79.605 Pain in left leg (principal); M79.604 Pain in right leg; G20 Parkinson's disease; F02.80 Dementia in other diseases classified elsewhere, unspecified severity, without behavioral disturbance, psychotic disturbance, mood disturbance, and anxiety; I10 Essential (primary) hypertension; E78.5 Hyperlipidemia, unspecified; I48.91 Unspecified atrial fibrillation; M19.90 Unspecified osteoarthritis, unspecified site; Z79.01 Long term (current) use of anticoagulants; Z79.899 Other long term (current) drug therapy; Z87.891 Personal history of nicotine dependence
CPT/HCPCS: 36415; 80048; 85025; 93970; 99284

== ENCOUNTER → 2022-06-01 | Outpatient (CLI) | payer MEDICARE ==
--- NOTE | 2022-06-01 15:51 | CT ---
EXAMINATION TYPE: CT brain wo con CT DLP: 1254 mGycm, Automated exposure control for dose reduction was used. DATE OF EXAM: 06/01/2022 3:45 PM COMPARISON: No direct comparisons. CLINICAL INDICATION:Male, 72 years old with history of R43.1 parosmia, parosmia and parkinsons and la ck of feeling in legs TECHNIQUE: Brain: Multiple axial CT images of the brain were obtained without IV contrast. Coronal and sagittal reformats reviewed. FINDINGS: Brain: Extra-axial spaces: No abnormal extra-axial fluid collections. Ventricular system: Within normal limits Cerebral parenchyma: Cerebral atrophy. No acute intraparenchymal hemorrhage or mass effect. The gordon -white junction is well differentiated. Scattered hypoattenuating areas are seen within the white mat ter. Cerebellum: Unremarkable. Mass effect: No evidence of midline shift. Intracranial vasculature: Atherosclerotic calcifications of the intracranial vessels. Soft tissues: Multiple forehead dermal calcifications. Calvarium/osseous structures: No depressed skull fracture. Paranasal sinuses and mastoid air cells: Mild scattered paranasal sinus disease. Visualized orbits: Bilateral aphakia IMPRESSION: 1. No acute intracranial process. 2. Nonspecific white matter changes, likely secondary to chronic small vessel ischemic disease versus less likely a demyelinating process.
== END | disposition home or self-care (01) ==
LOC: RADCTMAIN 15:26
PROVIDERS: ATTEND Family Medicine
DX: G20 Parkinson's disease (principal); R90.82 White matter disease, unspecified; R43.1 Parosmia
CPT/HCPCS: 70450

== ENCOUNTER 2023-08-27 18:18 | Inpatient (IN) | payer MEDICARE ==
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
[2023-08-27] MEDS: SODIUM CHLORIDE 0.9% 500 ML 500 ML IV STA (18:36)
[2023-08-27] MEDS: PANTOPRAZOLE 40 MG/10 ML VIAL IVP STA (18:36)
[2023-08-27 18:55] LABS: Basophils % (A) 0 %; Eosinophils # (A) 0.1 k/uL (0-0.7); Eosinophils % (A) 1 %; HCT 28.2 % (39.0-53.0); Lymphocytes # (A) 0.7 k/uL (1.0-4.8); Lymphocytes % (A) 8 %; MCH 28.9 pg (25.0-35.0); MCV 90.2 fL (80.0-100.0); Monocytes # (A) 0.3 k/uL (0-1.0); Monocytes % (A) 3 %; Neutrophils # (A) 7.3 k/uL (1.3-7.7); Neutrophils % (A) 88 %; Platelet Count 275 k/uL (150-450); RBC 3.12 m/uL (4.30-5.90); RDW 13.6 % (11.5-15.5); WBC 8.3 k/uL (3.8-10.6)
[2023-08-27 18:56] LABS: INR 1.2 (<1.2); Partial Thromboplastin Time 24.8 sec (22.0-30.0); Prothrombin Time 12.5 sec (10.0-12.5)
[2023-08-27 19:11] LABS: ALT 15 U/L (4-49); AST 24 U/L (17-59); African American GFR (CKD) >90 (>60 ml/min/1.73 sqM); Albumin 3.2 g/dL (3.5-5.0); Alkaline Phosphatase 38 U/L (38-126); Anion Gap 11 mmol/L; Blood Urea Nitrogen 74 mg/dL (9-20); Calcium 8.5 mg/dL (8.4-10.2); Carbon Dioxide 17 mmol/L (22-30); Chloride 113 mmol/L (98-107); Creatine Kinase 206 U/L (55-170); Glucose 120 mg/dL (74-99); Magnesium 2.2 mg/dL (1.6-2.3); Non-African American GFR(CKD) >90 (>60 ml/min/1.73 sqM); Potassium 4.6 mmol/L (3.5-5.1); Sodium 141 mmol/L (137-145); Total Bilirubin 0.7 mg/dL (0.2-1.3); Total Protein 5.1 g/dL (6.3-8.2)
--- NOTE | 2023-08-27 19:38 | XR ---
EXAMINATION TYPE: XR chest 2V DATE OF EXAM: 08/27/2023 6:54 PM CLINICAL INDICATION:Male, 73 years old with history of syncope; [facility] COMPARISON: Chest radiographs from 12/07/2017 TECHNIQUE: XR chest 2V Frontal and lateral views of the chest. FINDINGS: Lungs/Pleura: There is no evidence of pleural effusion, focal consolidation, or pneumothorax. Pulmonary vascularity: Unremarkable. Heart/mediastinum: Cardiomediastinal silhouette is unremarkable. Musculoskeletal: No acute osseous pathology. IMPRESSION: No acute cardiopulmonary disease/process.
[2023-08-27] MEDS ORDERED: NALOXONE 0.4 MG/ML 1 ML VIAL IV PRN (20:37)
[2023-08-27] MEDS ORDERED: LORazepam 0.5 MG TAB PO PRN (21:55)
[2023-08-27] MEDS: LORazepam 2 MG/ML INJ IV STA ×2 (22:07→23:47)
[2023-08-27] MEDS: PANTOPRAZOLE 40 MG/10 ML VIAL IV SCH (22:09)
[2023-08-27 22:55] LABS: Glucose,Whole Blood 129 mg/dL (70-110)
[2023-08-27] MEDS: LORazepam 2 MG/ML INJ IM STA (23:09)
[2023-08-27] MEDS: SODIUM CHLORIDE 0.9% 1,000 ML IV STA ×2 (23:12→23:34)
[2023-08-27] MEDS ORDERED: Kcentra PER PHARMACY 1 EACH MISC MISCELLANE PRN (23:13)
[2023-08-27] MEDS: CARBIDOPA-LEVODOPA 25-100 MG 1 EACH TAB PO SCH (23:33)
[2023-08-27] MEDS ORDERED: HUMAN PROTHROMBIN COMPLX 500 UNIT/16 ML VIAL IV ONE (23:42)
[2023-08-27 23:56] LABS: Basophils % (A) 0 %; Eosinophils % (A) 1 %; Lymphocytes % (A) 13 %; MCH 28.6 pg (25.0-35.0); MCHC 31.3 g/dL (31.0-37.0); MCV 91.3 fL (80.0-100.0); Mean Platelet Volume 8.9; Monocytes % (A) 4 %; Neutrophils % (A) 82 %; Platelet Count 251 k/uL (150-450); RBC 2.62 m/uL (4.30-5.90); RDW 13.6 % (11.5-15.5); WBC 8.3 k/uL (3.8-10.6)
[2023-08-27 23:57] LABS: Eosinophils # (A) 0.1 k/uL (0-0.7); Monocytes # (A) 0.3 k/uL (0-1.0); Neutrophils # (A) 6.8 k/uL (1.3-7.7)
[2023-08-28 00:11] LABS: HGB 7.5 gm/dL (13.0-17.5)
--- NOTE | 2023-08-28 07:24 | CT ---
EXAMINATION TYPE: CT brain wo con DATE OF EXAM: 08/28/2023 COMPARISON: 06/01/2022 INDICATION: Pt comes in today via EMS from home. Pts found him passed out on the floor and had s tool all over himself. Per EMS the stool was black and tarry in color. pt has been in ER for 12.5 hrs already. AMS and yelling DLP: 1256.4 mGycm, Automated exposure control for dose reduction was used. CONTRAST: None CT of the brain is performed utilizing 3 mm thick sections through the posterior fossa and 3 mm thick sections through the remaining calvarium. Study is performed within 24 hours of arrival to the hosp ital. No abnormal hyperdensity is present to suggest an acute intracranial hemorrhage. No mass lesion is evident. No acute infarcts are evident. Ventricles and sulci are prominent for the patient age. Paranasal sinuses and mastoid air cells within the [id number] are clear. IMPRESSION: 1. Atrophy. 2. No acute intracranial process radiographically apparent. Exam appears similar to the 2022 exam. Fo llow-up MRI can be performed as clinically indicated
[2023-08-28] MEDS: GABAPENTIN 300 MG CAP PO SCH (08:50)
[2023-08-28] MEDS: FLECAINIDE 50 MG TAB PO SCH (08:50)
[2023-08-28 11:32] LABS: Basophils % (A) 0 %; Eosinophils % (A) 0 %; HCT 26.6 % (39.0-53.0); HGB 8.7 gm/dL (13.0-17.5); Lymphocytes # (A) 1.4 k/uL (1.0-4.8); Lymphocytes % (A) 14 %; MCH 28.8 pg (25.0-35.0); MCHC 32.9 g/dL (31.0-37.0); MCV 87.3 fL (80.0-100.0); Monocytes # (A) 0.6 k/uL (0-1.0); Monocytes % (A) 5 %; Neutrophils # (A) 8.1 k/uL (1.3-7.7); Neutrophils % (A) 79 %; Platelet Count 189 k/uL (150-450); RBC 3.04 m/uL (4.30-5.90); RDW 14.4 % (11.5-15.5); WBC 10.2 k/uL (3.8-10.6)
[2023-08-28 11:48] LABS: African American GFR (CKD) >90 (>60 ml/min/1.73 sqM); Anion Gap 4 mmol/L; Blood Urea Nitrogen 57 mg/dL (9-20); Calcium 8.6 mg/dL (8.4-10.2); Carbon Dioxide 18 mmol/L (22-30); Chloride 121 mmol/L (98-107); Glucose 93 mg/dL (74-99); Non-African American GFR(CKD) >90 (>60 ml/min/1.73 sqM); Sodium 143 mmol/L (137-145)
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
[2023-08-28 12:26] LABS: Appearance,Urine Clear (Clear); Bilirubin,Urine Negative (Negative); Blood,Urine Negative (Negative); Color,Urine Colorless; Glucose,Urine (UA) Negative (Negative); Ketones,Urine Negative (Negative); Leukocyte Esterase,Urine Negative (Negative); Nitrite,Urine Negative (Negative); Protein,Urine Negative (Negative); Specific Gravity,Urine 1.021 (1.001-1.035); Urobilinogen,Urine <2.0 mg/dL (<2.0)
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
[2023-08-28] MEDS: HYDROcodone/APAP 10-325MG 1 EACH TAB PO PRN (13:51)
[2023-08-28] MEDS: ATORVASTATIN 20 MG TAB PO SCH (21:02)
[2023-08-28] MEDS: DONEPEZIL 10 MG TAB PO SCH (21:03)
[2023-08-28] MEDS: PANTOPRAZOLE 40 MG/10 ML VIAL IV SCH (21:03)
[2023-08-29 04:44] LABS: Glucose,Whole Blood 98 mg/dL (70-110)
[2023-08-29] MEDS: METOPROLOL SUCCINATE (ER) 50 MG TAB.ER.24H PO STA (05:30)
[2023-08-29 07:39] LABS: HCT 27.1 % (39.0-53.0); HGB 8.5 gm/dL (13.0-17.5); MCHC 31.3 g/dL (31.0-37.0); MCV 89.5 fL (80.0-100.0); Platelet Count 184 k/uL (150-450); RBC 3.03 m/uL (4.30-5.90); RDW 14.4 % (11.5-15.5); WBC 7.1 k/uL (3.8-10.6)
[2023-08-29 07:51] LABS: African American GFR (CKD) >90 (>60 ml/min/1.73 sqM); Anion Gap 5 mmol/L; Blood Urea Nitrogen 25 mg/dL (9-20); Calcium 8.7 mg/dL (8.4-10.2); Carbon Dioxide 21 mmol/L (22-30); Chloride 118 mmol/L (98-107); Glucose 98 mg/dL (74-99); Non-African American GFR(CKD) >90 (>60 ml/min/1.73 sqM); Potassium 3.7 mmol/L (3.5-5.1); Sodium 144 mmol/L (137-145)
--- NOTE | 2023-08-29 10:20 | CDI ---
Documentation Clarification Form Date: 08/29/2023 09:56:01 AM From: Odette Carr RN, CCDS Phone: [phone] Admit Date: 08/27/2023 08:39:00 PM Patient Name: Gerardo Shepard Visit Number: [id number] Discharge Date: ATTENTION: The Clinical Documentation Specialists (CDI) and [facility] Coding Staff appreciate your assistance in clarifying documentation. Please respond to the clarification below the line at the bottom and electronically sign. The CDI & [facility] Coding staff will review the response and follow-up if needed. Please note: Queries are made part of the Legal Health Record. If you have any questions, please contact the author of this message via ITS. Dr. Luis Bernard Unspecified anemia with acute upper GI bleed is documented in the GI Consult and the H&P . Additional specificity regarding the type, acuity of anemia is requested. History/Risk Factors: Atrial Fibrillation, Cancer, GI Bleed, Hyperlipidemia, Hypertension, Clinical indicators: 73-year-old male presenting to the ED for altered mental status with known Parkinson's. Patient denies any syncope. He is on Eliquis for treatment of atrial fibrillation. He has conjunctival pallor. Fecal occult blood is positive. 08/26 VS (18:21) 88/59 80 97.7 98% RA 08/26 HGB 9.0 HCT 28.2, HGB 7.5, HCT 24.0 08/27 HGB 8.7 HCT 26.6 Treatment: Monitor CBC Daily Transfuse 2 Units PRBC (08/27/23) hemoglobin less than 7 Protonix 40 MG IV Daily Hold anticoagulation, Avoid NSAIDs Please clarify the type and acuity of anemia: [ ] Acute blood loss anemia [ ] Acute on chronic blood loss anemia [ ] Unable to determine [ ] Other, please specify (Template Last Revised: April 2020) MTDD
[2023-08-29] MEDS ORDERED: LORazepam 0.5 MG TAB PO PRN (10:25)
[2023-08-29] MEDS ORDERED: LIDOCAINE 1% INJ 10MG/ML (20 ML MDV) ONE (12:44)
[2023-08-29] MEDS ORDERED: PROPOFOL 10 MG/ML 20 ML VIAL IV ONE (12:44)
[2023-08-29] MEDS: SODIUM CHLORIDE 0.9% 500 ML 500 ML IV ONE ×2 (12:47→15:06)
--- NOTE | 2023-08-29 12:56 | P.PCN ---
Date of Procedure: 08/29/23 Procedure(s) Performed: BRIEF HISTORY: Patient is a 73-year-old, pleasant, white male admitted to hospital with multiple episodes of black tarry stools for the last 3 days duration.. History of A-fib fib on Eliquis which is on hold for the last 2 days. Hemoglobin was 7.3 g/dL. Patient is a PRBC transfusion because of hypotension and confusion the emergency room. Past hemoglobin was 8.3 g/dL. He is scheduled for an upper endoscopy for possible upper GI source of bleed PROCEDURE PERFORMED: Esophagogastroduodenoscopy with biopsy. PREOPERATIVE DIAGNOSIS: Black tarry stools of 2 days duration. IV sedation per anesthesia. PROCEDURE: After informed consent was obtained, the patient was brought into the endoscopy unit. IV sedation was administered by Anesthesia under continuous monitoring. Initially the Olympus GIF-140 video endoscope was inserted into the mouth. Esophagus intubated without any difficulty. It was gradually advanced into the stomach and duodenum and carefully examined. The bulb and the second part of the duodenum appeared normal. The scope at this time was withdrawn to th e stomach, adequately insufflated with air, and upon careful examination, mucosa of the antrum, 5 to 6 mm ulceration with no active bleeding. Biopsies were done from this area. Mucosa of the body, cardia and the fundus appeared normal. The scope was then withdrawn into the esophagus. Mild hiatal hernia. The GE junction was located at 39 cm from the incisors. The esophagus appeared normal. There were no erosions or ulcerations seen and the patient tolerated the procedure well. IMPRESSION: 1. 5 to 6 mm antral ulcer with no active bleeding. 2. Small hiatal hernia. RECOMMENDATIONS: The findings of this examination were discussed with the patient as well as his family. He was advised to continue with Protonix 40 mg twice daily. Avoid NSAIDs. Advance to regular diet. Resume Eliquis tomorrow.
[2023-08-29] MEDS ORDERED: QUEtiapine 25 MG TAB PO PRN (13:48)
[2023-08-29] MEDS: POTASSIUM CHLORIDE ER 20 MEQ TAB.ER PO STA (15:06)
--- NOTE | 2023-08-29 16:12 | P.PN ---
Subjective Progress Note Date: 08/29/23 71-year-old male was found in dark stools. Patient was admitted for altered mental status as well although patient has Parkinson's patient is able to answer medical questions appropriately. Patient denies any syncope. Patient hemoglobin dropped from 9-7.5, gastroenterology was consulted patient was star dio on Protonix. Patient was transfused 2 unit of PRBC. Last colonoscopy was done in 2020 which showed diverticulosis. Patient is quite weak because of which his is concerned about urinary tract infection although patient does not have any symptoms of UTI will obtain urine analysis and urine cultures. Patient does have history of atrial fibrillation and is on Eliquis at home which is being held at this time. 08/29/2023 Patient is evaluated in follow-up today in the medical floor. He was having increased agitation and we did okay his Ativan to be increased to 4 times a day however in this situation this is likely a hospital-acquired delirium patient has an underlying history of Parkinson's we would recommend to go with Seroquel twice a day versus the Ativan. Patient had an upper endoscopy today revealing a 5 to 6 mm antral ulcer with no active bleeding and a small hiatal hernia. Findings were discussed with the family by the Dr. Belle. Patient was recommended to continue on Protonix twice a day and avoid NSAIDs. Patient was resumed on a regular diet and can resume Eliquis tomorrow. Unfortunately he was unable to get up and ambulate significantly weak and will need a PT OT evaluation prior to discharge back home and will need to be monitored overnight. Review of Systems Constitutional: Denied any fatigue denied any fever. Cardio vascular: denied any chest pain, palpitations Gastrointestinal: denied any nausea, vomiting, diarrhea Pulmonary: Denied any shortness of breath cough Neurologic denied any new focal deficits All inpatient medications were reviewed and appropriate changes in these medications as dictated in the interval history and assessment and plan. PHYSICAL EXAMINATION: GENERAL: The patient is alert and oriented x3, patient is quite weak and does have significant tremors from his Parkinson's HEENT: Pupils are round and equally reacting to light. EOMI. No scleral icterus. Does have conjunctival pallor. Normocephalic, atraumatic. No pharyngeal erythema. No thyromegaly. CARDIOVASCULAR: S1 and S2 present. No murmurs, rubs, or gallops. PULMONARY: Chest is clear to auscultation, no wheezing or crackles. ABDOMEN: Soft, nontender, nondistended, normoactive bowel sounds. No palpable organomegaly. MUSCULOSKELETAL: No joint swelling or deformity. EXTREMITIES: No cyanosis, clubbing, or pedal edema. NEUROLOGICAL: Gross neurological examination did not reveal any focal deficits. SKIN: No rashes. Assessment and plan -Acute upper GI bleed underwent endoscopy today showing a 5 to 6 mm antral ulcer with no active bleeding. Continues on Protonix twice a day and cleared by GI services to resume his Eliquis in the morning. Regular diet -Hyperchloremic metabolic acidosis IV fluids will be discontinued and this is secondary to normal saline -Generalized tiredness and weakness as per the request of the family members will obtain UA which is completely normal. Patient will need to be seen by PT OT and possible subacute rehab on discharge. -Parkinson's with baseline tremor patient will be resumed on home medications -Paroxysmal atrial fibrillation presently sinus rhythm with resumed on home medications except for apixaban -Hypertension -Hyperlipidemia -Sleep apnea -Depression -Anxiety - patient has been taking an Ativan at at bedtime however this can cause increased agitation and confusion in the elderly and would recommend to use Seroquel as needed at bedtime and in the morning if patient remains in the hospital he will have better results with this medication versus the Ativan. For above-mentioned chronic medical problems patient will be resumed on appropriate home medications DVT prophylaxis: Nonpharmacological DVT prophylaxis that is SCDs; resumed on eliquis tomorrow GI prophylaxis: Protonix BID Plan Patient will need to be seen by PT/OT for discharge planning. He remains significantly weak. As mentioned change ativan to seroquel. Repeat blood work in the AM. Down grade to the medical floor. The impression and plan of care has been dictated by Thalia Navarro Nurse Practitioner as directed. Dr. Joana MD I have performed a history and physical examination and medical decision making of this patient, discussed the same with the dictator, and agree with the dictators assessment and plan as written, documented as a scribe. Based on total visit time, I have performed more than 50% of this visit. Objective - Vital Signs Vital signs: Vital Signs Temp 98.2 F 08/29/23 12:25 Pulse 86 08/29/23 12:25 Resp 16 08/29/23 12:25 BP 97/61 08/29/23 12:25 Pulse Ox 99 08/29/23 12:25 FiO2 Intake & Output 08/28/23 08/29/23 08/29/23 18:59 06:59 18:59 Intake Total 10 210 Balance 10 210 Weight 83.915 kg Intake: IV 10 210 Invasive Line 2 10 10 Oral 0 Other: Voiding Method Urinal Urinal Diaper Diaper Incontinent Incontinent # Voids 1 - Labs CBC & Chem 7: 08/29/23 07:08 08/29/23 07:08 Labs: Abnormal Lab Results - Last 24 Hours (Table) 08/29/23 08/29/23 Range/Units 07:08 07:08 RBC 3.03 L (4.30-5.90) m/uL Hgb 8.5 L (13.0-17.5) gm/dL Hct 27.1 L (39.0-53.0) % Chloride 118 H (98-107) mmol/L Carbon Dioxide 21 L (22-30) mmol/L BUN 25 H (9-20) mg/dL Creatinine 0.59 L (0.66-1.25) mg/dL Assessment and Plan Time with Patient: Less than 30
[2023-08-29 21:37] VITALS: PULSE 79
[2023-08-29] MEDS: QUEtiapine 25 MG TAB PO PRN (23:10)
[2023-08-30 07:22] LABS: HCT 25.1 % (39.0-53.0); HGB 8.5 gm/dL (13.0-17.5); MCH 30.6 pg (25.0-35.0); MCHC 33.7 g/dL (31.0-37.0); MCV 90.9 fL (80.0-100.0); Mean Platelet Volume 7.8; Platelet Count 174 k/uL (150-450); RBC 2.76 m/uL (4.30-5.90); WBC 4.2 k/uL (3.8-10.6)
[2023-08-30 07:34] VITALS: BP 105/64; RESP 17; TEMP 97.9
[2023-08-30 07:43] LABS: African American GFR (CKD) >90 (>60 ml/min/1.73 sqM); Anion Gap 1 mmol/L; Blood Urea Nitrogen 14 mg/dL (9-20); Calcium 8.8 mg/dL (8.4-10.2); Carbon Dioxide 25 mmol/L (22-30); Chloride 115 mmol/L (98-107); Glucose 89 mg/dL (74-99); Non-African American GFR(CKD) >90 (>60 ml/min/1.73 sqM); Potassium 3.6 mmol/L (3.5-5.1); Sodium 141 mmol/L (137-145)
[2023-08-30] MEDS: APIXABAN 5 MG TAB PO SCH (08:32)
--- NOTE | 2023-09-03 06:56 | P.DS ---
Providers Date of admission: 08/27/23 20:39 Expected date of discharge: 08/30/23 Attending physician: Randolph Simeon MD Consults: 08/27/23 20:37 Consult Physician Urgent Consulting Provider: Leann Belle Consult Reason/Comments: gi hemorrhage Do you want consulting provider notified?: Yes, Notify in am Primary care physician: Carlos Pedroza [place] [facility] Course: Final diagnosis -Acute upper GI bleed underwent endoscopy today showing a 5 to 6 mm antral ulcer with no active bleeding. Okay to resume Eliquis per GI -Hyperchloremic metabolic acidosis, this is secondary to normal saline -Generalized tiredness and weakness as per the request of the family members will obtain UA which is completely normal. -Parkinson's with baseline tremor -Paroxysmal atrial fibrillation presently sinus rhythm -Hypertension -Hyperlipidemia -Sleep apnea -Depression -Anxiety - patient has been taking an Ativan at at bedtime however this can cause increased agitation and confusion in the elderly and would recommend to use Seroquel as needed at bedtime DVT prophylaxis GI prophylaxis Full code Discharge disposition Patient is being discharged in a stable condition with guarded prognosis to home. Patient will follow-up with Dr. Pedroza in the outpatient setting upon discharge. Patient is to continue with medications as prescribed and outpatient follow-up with GI as scheduled. Total time taken is greater than 35 minutes. Hospital course This is a 73-year-old male who was recently admitted with concerns of possible GI bleed being closely monitored with GI following. Patient underwent EGD today showing antral ulcer with multiple biopsies obtained and no active bleeding. Patient okay to resume Eliquis today. Patient to follow-up with GI outpatient for biopsy results. Patient evaluated by physical therapy did well and will be going home. Please refer to other consultation notes for further HPI. Patient has been instructed to follow-up with primary care provider this week. Currently no reports of chest pain, shortness of breath, or palpitations. Patient is afebrile. No reports of nausea or vomiting and patient is tolerating diet. Patient will be discharged home today. Guarded prognosis given significant comorbidities Physical exam: Gen: This is a 73-year-old male who is awake, alert and oriented, well- developed, well-nourished, elderly appearing HEENT: Head is atraumatic, normocephalic. Pupils equal, round. Sclerae is anicteric. NECK: Supple. No JVD. No lymphadenopathy. No thyromegaly. LUNGS: Diminished breath sounds bilaterally otherwise clear to auscultation. No wheezes or rhonchi. No intercostal retractions. HEART: S1, S2 are muffled ABDOMEN: Soft. Bowel sounds are present. No masses. No tenderness. EXTREMITIES: No pedal edema. No calf tenderness. NEUROLOGICAL: Patient is awake, alert and oriented x3. Cranial nerves 2 through 12 are grossly intact. Diffusely weak Please refer to medication reconciliation sheet for a list of medications. The impression and plan of care has been dictated by Violeta Patel, Nurse Practitioner as directed. Dr. Fina MD I have performed a history and examination and MDM of this patient, discussed the same with the dictator, and agree with the dictator's assessment and plan as written ,documented as a scribe. Based on total visit time, I have performed more than 50% of the visit. Patient Condition at Discharge: Stable Plan - Discharge Summary New Discharge Prescriptions: New Pantoprazole [Protonix] 40 mg PO BID #60 tab Continue HYDROcodone/APAP 10-325MG [[place] 10-325] 1 tab PO BID PRN PRN Reason: Pain Metoprolol Succinate [Toprol XL] 50 mg PO BID Flecainide [Tambocor] 50 mg PO BID Ubidecarenone [Coenzyme Q10] 100 mg PO DAILY LORazepam [Ativan] 0.25 - 0.5 mg PO HS PRN PRN Reason: Anxiety Donepezil HCl [Aricept] 10 mg PO HS Carbidopa-Levodopa 25-100 mg [Sinemet 25-100 mg] 2.5 tab PO QID Dicyclomine [Bentyl] 10 mg PO TID PRN PRN Reason: IBS Gabapentin 300 mg PO BID Atorvastatin [Lipitor] 20 mg PO HS Aspirin EC [Ecotrin Low Dose] 81 mg PO DAILY Apixaban [Eliquis] 5 mg PO BID #0 Discontinued amLODIPine [Norvasc] 5 mg PO DAILY Losartan [Cozaar] 50 mg PO DAILY Ibuprofen [Motrin] 600 mg PO TID PRN PRN Reason: Pain Discharge Medication List HYDROcodone/APAP 10-325MG [[place] 10-325] 1 tab PO BID PRN 04/02/14 [History] Metoprolol Succinate [Toprol XL] 50 mg PO BID 04/15/14 [History] Flecainide [Tambocor] 50 mg PO BID 06/26/17 [History] Aspirin EC [Ecotrin Low Dose] 81 mg PO DAILY 08/27/23 [History] Atorvastatin [Lipitor] 20 mg PO HS 08/27/23 [History] Carbidopa-Levodopa 25-100 mg [Sinemet 25-100 mg] 2.5 tab PO QID 08/27/23 [History] Dicyclomine [Bentyl] 10 mg PO TID PRN 08/27/23 [History] Donepezil HCl [Aricept] 10 mg PO HS 08/27/23 [History] Gabapentin 300 mg PO BID 08/27/23 [History] LORazepam [Ativan] 0.25 - 0.5 mg PO HS PRN 08/27/23 [History] Ubidecarenone [Coenzyme Q10] 100 mg PO DAILY 08/27/23 [History] Apixaban [Eliquis] 5 mg PO BID #0 08/29/23 [Rx] Pantoprazole [Protonix] 40 mg PO BID #60 tab 08/29/23 [Rx] Follow up Appointment(s)/Referral(s): Leann Belle MD [STAFF PHYSICIAN] - 09/05/23 1:30 pm () [facility], [NON-STAFF] - As Needed ([facility] will call you to schedule your in home nursing, physical therapy, and occupational therapy visits. ) Carlos Pedroza DO [Primary Care Provider] - 09/06/23 4:00 pm Ambulatory/Diagnostic Orders: Basic Metabolic Panel [LAB.AMB] Time Frame: 3 Days, Location: None Selected Complete Blood Count w/diff [LAB.AMB] Location: None Selected Patient Instructions/Handouts: Syncope (DC) Activity/Diet/Wound Care/Special Instructions: Continue on protonix twice a day Can resume eliquis on 08/30/2023 in the AM dose Recommmend to hold losartan and amlodipine on discharge secondary to decreased blood pressures. Would recommend to wean off ativan on an outpatient basis this can cause increased confusion actually patient would benefit more from seroquel at HS can further discuss with PCP on follow. Recommend to see GI Dr. Levar Belle in 2 to 3 weeks in the office See Dr. Pedroza in 2 to 3 days. Discharge Disposition: HOME WITH HOME HEALTH SERVICES
--- NOTE | 2023-09-03 11:22 | CDI ---
Documentation Clarification Form Date: 09/03/2023 11:02:40 AM From: Ashley Parr RN, CCDS Phone: [phone] Admit Date: 08/27/2023 08:39:00 PM Patient Name: Gerardo Shepard Visit Number: [id number] Discharge Date: 08/30/2023 03:17:00 PM ATTENTION: The Clinical Documentation Specialists (CDI) and [facility] Coding Staff appreciate your assistance in clarifying documentation. Please respond to the clarification below the line at the bottom and electronically sign. The CDI & [facility] Coding staff will review the response and follow-up if needed. Please note: Queries are made part of the Legal Health Record. If you have any questions, please contact the author of this message via ITS. BJ Warren There is documentation of acute upper GI bleed and the patient was on Eliquis. Based on this information and the findings below, is there an additional diagnosis that is clinically appropriate for this patient? History/Risk Factors: A fib, on Eliquis, GI bleed, HTN, Parkinson's and diverticulosis. Presented with AMS, melena and syncopal episode. Admitted with upper GI bleed, s/p EGD. Clinical Indicators: 08/26 PT/PTT/INR: 12.5/24.8/1.2 08/26-08/29 Hgb: 7.5-8.7-8.5 08/27 GI consult: "Melena. Eliquis currently on hold. Patient is status post 2 units of blood. Continue to hold anticoagulation." 08/27 H&P: "Acute upper GI bleed probably peptic ulcer disease. Patient was started on Protonix, gastroenterology was consulted, hold off Eliquis." 08/28 Procedure: "History of A-fib fib on Eliquis which is on hold for the last 2 days. Hemoglobin was 7.3 g/dL. Impression of antral ulcer with no active bleeding and small hiatal hernia." Treatment: IV Fluid: 2L IV bolus 0.9 NS on 08/26; 1L IV bolus 0.9 NS on 08/28 Transfusion: 2 unit PRBC's on 08/27 Reversal agent: Kcentra 2000 unit @ 573.979 mls/hr on 08/26-08/27 Is there an additional diagnosis that is clinically appropriate for this patient? [x ] Upper GI bleed due to Eliquis as well as antral ulcer noted on egd [ ] Coagulopathy due to Eliquis [ ] Other, please specify [ ] Unable to determine MTDD
--- NOTE | 2023-09-03 13:16 | CDI ---
Documentation Clarification Form Date: 09/03/2023 11:37:40 AM From: Ashley Parr RN, CCDS Phone: [phone] Admit Date: 08/27/2023 08:39:00 PM Patient Name: Gerardo Shepard Visit Number: [id number] Discharge Date: 08/30/2023 03:17:00 PM ATTENTION: The Clinical Documentation Specialists (CDI) and [facility] Coding Staff appreciate your assistance in clarifying documentation. Please respond to the clarification below the line at the bottom and electronically sign. The CDI & [facility] Coding staff will review the response and follow-up if needed. Please note: Queries are made part of the Legal Health Record. If you have any questions, please contact the author of this message via ITS. Dr. Luis Bernard The patient had the documented symptom of altered mental status and confusion in the progress notes. Additional clarification regarding the etiology/cause is requested. History/Risk Factors: A fib, on Eliquis, GI bleed, HTN, Parkinson's and diverticulosis. Presented with AMS, melena and syncopal episode. Admitted with upper GI bleed, s/p EGD. Clinical Indicators: 08/26-08/29 Hgb: 7.5-8.7-8.5 08/27 GI consult: Anemia, melena, AMS 08/[address]: Pt comes in today via EMS from home. Pts found him passed out on the floor and had stool all over himself. Per EMS, the stool was black and tarry in color. Patient has been in ER for 12.5 hrs already. AMS and yelling. Impression of atrophy and no acute process. 08/28 EGD: "black tarry stools of 2 days duration. Hypotension and confusion in the ER." 08/28 IM: "He was having increased agitation and we did okay his Ativan to be increased to 4 times a day however in this situation, this is likely a hospital- acquired delirium. Patient has an underlying history of Parkinson's, we would recommend to go with Seroquel twice a day versus the Ativan." Treatment: Aricept 10mg po HS 08/27-08/28; Ativan 0.5mg IVP x1 on 08/26; Ativan 1mg IVP x1 on 08/26 then d/c and started Seroquel 12.5mg po QHS prn for agitation on 08/28; 2L IV bolus 0.9 NS on 08/26; 1L IV bolus 0.9 NS on 08/28; 2 units PRBC's on 08/27 Please clarify the diagnosis [ ] Acute metabolic encephalopathy due to anemia and GI bleed [ ] Delirium (specify cause): [ x ] Other condition (please specify) no delirium patient has dementia [ ] Unable to determine MTDD
== END 2023-08-30 15:17 | disposition home health service (06) | DRG 813 ==
LOC: SUPCPDRO 18:18 → EC 18:18 → 3SCARD 20:39 → 4SSUR 08-29 21:27
PROVIDERS: ADMIT Internal Medicine; ATTEND Internal Medicine
PROC: 30233N1 Transfusion of Nonautologous Red Blood Cells into Peripheral Vein, Percutaneous Approach (ICD-10-PCS; 2023-08-28)
PROC: 0DB78ZX Excision of Stomach, Pylorus, Via Natural or Artificial Opening Endoscopic, Diagnostic (ICD-10-PCS; principal; 2023-08-29 14:20)
DX: D68.32 Hemorrhagic disorder due to extrinsic circulating anticoagulants (principal); K25.4 Chronic or unspecified gastric ulcer with hemorrhage; F05 Delirium due to known physiological condition; E78.5 Hyperlipidemia, unspecified; F17.210 Nicotine dependence, cigarettes, uncomplicated; G20.A1 Parkinson's disease without dyskinesia, without mention of fluctuations; F32.A Depression, unspecified; G30.9 Alzheimer's disease, unspecified; G47.30 Sleep apnea, unspecified; I10 Essential (primary) hypertension; I48.0 Paroxysmal atrial fibrillation; Z79.01 Long term (current) use of anticoagulants; E87.8 Other disorders of electrolyte and fluid balance, not elsewhere classified; T45.515A Adverse effect of anticoagulants, initial encounter; T58.91XA Toxic effect of carbon monoxide from unspecified source, accidental (unintentional), initial encounter; K44.9 Diaphragmatic hernia without obstruction or gangrene; I95.9 Hypotension, unspecified; Z79.82 Long term (current) use of aspirin; Z79.899 Other long term (current) drug therapy; Z82.49 Family history of ischemic heart disease and other diseases of the circulatory system; Z85.46 Personal history of malignant neoplasm of prostate; Z86.711 Personal history of pulmonary embolism; X58.XXXA Exposure to other specified factors, initial encounter
CPT/HCPCS: 36415; 36430; 43239; 70450; 71046; 80048; 80053; 81003; 82272; 82550; 83735; 84484; 85025; 85027; 85610; 85730; 86850; 86900; 86901; 86920; 88305; 93005; 94760; 96361; 96365; 96375; 96376; 99285

== ENCOUNTER 2024-07-11 17:32 | Emergency (ER) | payer MEDICARE ==
[2024-07-11 17:39] VITALS: RESP 18
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
[2024-07-11 18:49] LABS: Appearance,Urine Clear (Clear); Bilirubin,Urine Negative (Negative); Blood,Urine Negative (Negative); Color,Urine Yellow; Glucose,Urine (UA) Negative (Negative); Ketones,Urine Negative (Negative); Leukocyte Esterase,Urine Negative (Negative); Nitrite,Urine Negative (Negative); PH, Urine 5.5 (5.0-8.0); Protein,Urine Negative (Negative); Urobilinogen,Urine <2.0 mg/dL (<2.0)
[2024-07-11] MEDS: AMOXIC-POT CLAV 875-125MG 1 EACH TAB PO STA (19:14)
[2024-07-11 19:24] VITALS: BP 144/82; PULSE 66; TEMP 97.9
== END 2024-07-11 19:23 | disposition home or self-care (01) ==
LOC: EC 17:32
DX: N39.0 Urinary tract infection, site not specified (principal); Z87.891 Personal history of nicotine dependence
CPT/HCPCS: 81003; 99283

== ENCOUNTER → 2024-08-22 | Day surgery (SDC) | payer MEDICARE ==
[~2024-08-22] MED LIST changes: +ACETAMINOPHEN TAB 325 MG TAB PO SCH; +DEXAMETHASONE SOD PHOSPHATE 4 MG/ML 1 ML VIAL ONE; +HYDROmorphone 0.5 MG/0.5 ML SYRINGE IVP PRN; +IBUPROFEN 600 MG TAB PO SCH; -IODINE/POTASS IOD (LUGOLS) BOTTLE TOPICAL ONE; +KETOROLAC 15 MG/ML 1 ML VIAL ONE; +LIDOCAINE 1% (10MG/ML) FOR IV START INTRADERMA PRN; +LIDOCAINE 1% INJ 10MG/ML (20 ML MDV) ONE; +PROPOFOL 10 MG/ML 20 ML VIAL IV ONE; +ROPIVACAINE 5 MG/ML 30 ML VIAL ONE; +ePHEDrine 50 MG/ML 1 ML VIAL ONE; +fentaNYL (PF) 50 MCG/ML 2 ML AMP IVP PRN; +fentaNYL (PF) 50 MCG/ML 2 ML AMP ONE
[2024-08-22] MEDS: IV FLUID CONTINUATION 1,000 ML IV ONE (07:53)
[2024-08-22] MEDS: ACETAMINOPHEN TAB 500 MG TAB PO PRN (08:33)
[2024-08-22] MEDS: LACTATED RINGERS 1,000 ML IV SCH (08:33)
[2024-08-22] MEDS: DEXAMETHASONE SOD PHOSPHATE 4 MG/ML 1 ML VIAL IV ONE (08:35)
[2024-08-22] MEDS: ONDANSETRON 4 MG/2 ML VIAL IVP ONE (08:35)
[2024-08-22 08:42] LABS: Basophils # (A) 0.07 10*3/uL (0.00-0.10); Eosinophils # (A) 0.06 10*3/uL (0.04-0.35); Eosinophils % (A) 1.7 %; HCT 43.7 % (39.6-50.0); HGB 14.4 g/dL (13.0-17.0); Lymphocytes # (A) 0.79 10*3/uL (0.90-5.00); Lymphocytes % (A) 22.4 %; MCH 28.5 pg (27.0-32.0); MCV 86.4 fL (80.0-97.0); Mean Platelet Volume 9.5 fL (9.5-12.2); Monocytes # (A) 0.28 10*3/uL (0.20-1.00); Neutrophils # (A) 2.31 10*3/uL (1.80-7.70); Neutrophils % (A) 65.6 %; Platelet Count 223 10*3/uL (140-440); RBC 5.06 10*6/uL (4.40-5.60); RDW 13.6 % (11.5-14.5); WBC 3.52 10*3/uL (4.50-10.00)
[2024-08-22 09:00] LABS: ALT 7 U/L (4-49); AST 36 U/L (17-59); African American GFR (CKD) >90 (>60 ml/min/1.73 sqM); Albumin 4.5 g/dL (3.5-5.0); Alkaline Phosphatase 62 U/L (38-126); Anion Gap 8 mmol/L; Blood Urea Nitrogen 13 mg/dL (9-20); Calcium 10.3 mg/dL (8.4-10.2); Carbon Dioxide 25 mmol/L (22-30); Chloride 106 mmol/L (98-107); Glucose 101 mg/dL (74-99); Non-African American GFR(CKD) >90 (>60 ml/min/1.73 sqM); Potassium 3.8 mmol/L (3.5-5.1); Sodium 139 mmol/L (137-145); Total Bilirubin 0.8 mg/dL (0.2-1.3); Total Protein 6.9 g/dL (6.3-8.2)
[2024-08-22] MEDS: MIDAZOLAM 2 MG/2 ML VIAL IV PRN (09:35)
[2024-08-22] MEDS: HEPARIN SODIUM,PORCINE 5,000 UNIT/ML 1 ML VIAL SQ PRN (09:41)
[2024-08-22] MEDS: ceFAZolin 2 GM in DEXTROSE 5% IN WATER 50 ML IVPB PRN (09:51)
[2024-08-22] MEDS: BUPIVACAINE (PF) 0.5% 30 ML VIAL SQ ONE ×2 (10:15)
--- NOTE | 2024-08-22 10:36 | P.ANPRN ---
Procedure Note - Anesthesia - Nerve Block Performed Right Erector Spinae Single Time Out Performed: Yes (35) Date of Procedure: 08/22/24 (935) Procedure Start Time: 09:36 (0) Procedure Stop Time: 09:41 Location of Patient: PreOp Indication: Acute Post-Operative Pain, Requested by Surgeon Specifically requested for management of pain by DrRadha: Quincy Narayanan Sedation Type: Sedate with meaningful contact maintained Preparation: Sterile Prep Position: Sitting Catheter: None Needle Types: Pajunk Needle Gauge: 21 Ultrasound used to visualize needle placement: Yes Ultrasound used to observe medication spread: Yes Injectate: 0.5% Ropivacaine (see comment for volume) (30cc+decadron 4mg) Blood Aspirated: No Pain Paresthesia on Injection Noted: No Resistance on Injection: Normal Image Stored and Saved: Yes Events: Uneventful and Well Tolerated
--- NOTE | 2024-08-22 11:10 | P.OP ---
Date of Procedure: 08/22/24 Procedure(s) Performed: PREOPERATIVE DIAGNOSIS: Right inguinal hernia POSTOPERATIVE DIAGNOSIS: Same PROCEDURE: Open repair right inguinal hernia with mesh SURGEON: Dr. Narayanan ANESTHESIA: General EBL: 5 cc OPERATIVE PROCEDURE DETAILS: Patient was placed in the operating table in the supine position and placed under general anesthesia. An oblique incision was made in the right groin. Dissection down through the subcutaneous tissues took place using electrocautery. The external oblique fascia was incised using a scalpel. This opening was lengthened using the Metzenbaum scissors. The spermatic cord was encircled with a Webster drain. The spermatic cord structures were identified and preserved. Careful dissection revealed an indirect hernia sac. This was carefully dissected back to the internal inguinal ring where it was ligated using 2 separate 0 silk stick tie sutures. A 3" x 6" Prolene mesh was cut to fit on the exposed fascia. This was sutured to the pubic tubercle the folding edge of the inguinal ligament and the conjoined tendon using interrupted 0 Vicryl sutures. A slit was created in the mesh and the mesh was wrapped around the spermatic cord and sutured back to itself. The external oblique was then reapproximated using a running 2-0 Vicryl suture. The subcutaneous tissues were reapproximated using a 3-0 Vicryl sutures. The skin was closed using 4-0 Monocryl sutures. Skin glue and sterile dressings were then applied. TYPE OF MESH USED: Flat Prolene 3 inch x 6 inch LOCATION OF MESH: [place] FIXATION: 2-0 Vicryl PREOPERATIVE DISCUSSION ON SMOKING CESSASTION: Yes PREOPERATIVE DISCUSSION ON MORBID OBESITY: Yes PREOPERATIVE DISCUSSION ON APPROPRIATE USE OF NARCOTIC USE: Yes PREOPERATIVE EDUCATION: Multi Modal, Smoking Cessation and Weight Loss with BMI over 35. DISPOSITION: Stable to recovery room
[2024-08-22 11:11] VITALS: RESP 16; TEMP 97.1
[2024-08-22 12:04] VITALS: BP 144/87; PULSE 72
== END ==
LOC: OR 07:36
PROVIDERS: ATTEND Surgery
DX: K40.90 Unilateral inguinal hernia, without obstruction or gangrene, not specified as recurrent (principal); G89.18 Other acute postprocedural pain; I48.91 Unspecified atrial fibrillation; I10 Essential (primary) hypertension; E78.5 Hyperlipidemia, unspecified; M10.9 Gout, unspecified; G47.33 Obstructive sleep apnea (adult) (pediatric); F32.A Depression, unspecified; G20.A1 Parkinson's disease without dyskinesia, without mention of fluctuations; F02.80 Dementia in other diseases classified elsewhere, unspecified severity, without behavioral disturbance, psychotic disturbance, mood disturbance, and anxiety; Z87.891 Personal history of nicotine dependence; Z85.46 Personal history of malignant neoplasm of prostate; Z79.01 Long term (current) use of anticoagulants; Z79.899 Other long term (current) drug therapy; Z79.1 Long term (current) use of non-steroidal anti-inflammatories (NSAID)
CPT/HCPCS: 64466; 80053; 85025; 88302; 49505; C1781; J2250; J1644; J1100; J0690; J2405; J2003; J3010; J2795; J1885; J2704; J0665

== ENCOUNTER 2024-09-04 18:26 | Observation (INO) | payer MEDICARE ==
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
[2024-09-04] MEDS: HYDROcodone/APAP 10-325MG 1 EACH TAB PO ONE (19:53)
[2024-09-04 20:09] LABS: ALT 27 U/L (4-49); AST 34 U/L (17-59); African American GFR (CKD) >90 (>60 ml/min/1.73 sqM); Albumin 4.0 g/dL (3.5-5.0); Alkaline Phosphatase 60 U/L (38-126); Anion Gap 6 mmol/L; Blood Urea Nitrogen 23 mg/dL (9-20); Calcium 10.1 mg/dL (8.4-10.2); Carbon Dioxide 26 mmol/L (22-30); Chloride 106 mmol/L (98-107); Glucose 98 mg/dL (74-99); Non-African American GFR(CKD) >90 (>60 ml/min/1.73 sqM); Potassium 3.3 mmol/L (3.5-5.1); Sodium 138 mmol/L (137-145); Total Protein 6.2 g/dL (6.3-8.2)
[2024-09-04 20:20] LABS: Basophils # (A) 0.03 10*3/uL (0.00-0.10); Basophils % (A) 0.5 %; Eosinophils # (A) 0.01 10*3/uL (0.04-0.35); Eosinophils % (A) 0.2 %; HCT 36.0 % (39.6-50.0); HGB 12.0 g/dL (13.0-17.0); Lymphocytes # (A) 1.12 10*3/uL (0.90-5.00); Lymphocytes % (A) 17.7 %; MCH 29.1 pg (27.0-32.0); MCHC 33.3 g/dL (32.0-37.0); MCV 87.2 fL (80.0-97.0); Monocytes # (A) 0.66 10*3/uL (0.20-1.00); Monocytes % (A) 10.4 %; Neutrophils # (A) 4.51 10*3/uL (1.80-7.70); Neutrophils % (A) 71.0 %; Platelet Count 244 10*3/uL (140-440); RBC 4.13 10*6/uL (4.40-5.60); RDW 14.0 % (11.5-14.5); WBC 6.34 10*3/uL (4.50-10.00)
[2024-09-04 20:27] LABS: INR 1.1 (<1.2); Partial Thromboplastin Time 26.3 sec (22.0-30.0); Prothrombin Time 12.0 sec (10.0-12.5)
[2024-09-04] MEDS: QUEtiapine 100 MG TAB PO PRN (21:53)
[2024-09-04 22:08] LABS: Bilirubin,Urine Negative (Negative); Blood,Urine Negative (Negative); Color,Urine Colorless; Glucose,Urine (UA) Negative (Negative); Ketones,Urine Negative (Negative); Leukocyte Esterase,Urine Negative (Negative); Nitrite,Urine Negative (Negative); PH, Urine 5.5 (5.0-8.0); Protein,Urine Negative (Negative); Specific Gravity,Urine 1.010 (1.001-1.035); Urobilinogen,Urine <2.0 mg/dL (<2.0)
--- NOTE | 2024-09-04 22:17 | CT ---
EXAMINATION TYPE: CT brain wo con CT DLP: 1215.4 mGycm, Automated exposure control for dose reduction was used. DATE OF EXAM: 09/04/2024 10:06 PM COMPARISON: CT brain 08/28/2023, 06/01/2022 CLINICAL INDICATION:Male, 74 years old with history of dementia, parkinsons, increased agitation, dem entia, parkinsons, increased agitation TECHNIQUE: Brain: Multiple axial CT images of the brain were obtained without IV contrast. . Coronal and sagitta l reformats reviewed. FINDINGS: Brain: Extra-axial spaces: No abnormal extra-axial fluid collections. Ventricular system: Within normal limits Cerebral parenchyma: Cerebral atrophy most pronounced involving the bilateral frontal lobes. No acute intraparenchymal hemorrhage or mass effect. The gordon-white junction is well differentiated. Scatter ed hypoattenuating areas are seen within the periventricular white matter. Empty sella morphology. Cerebellum: Unremarkable. Mass effect: No evidence of midline shift. Intracranial vasculature: Atherosclerotic calcifications of the intracranial vessels. Soft tissues: Dermal forehead calcifications. Calvarium/osseous structures: No depressed skull fracture. Paranasal sinuses and mastoid air cells: Clear Visualized orbits: Orbital contents are intact. IMPRESSION: 1. No acute intracranial process. 2. Similar cerebral atrophy and nonspecific white matter changes, likely secondary to chronic small v essel ischemic disease. [facility], , 09/04/2024 10:14 PM
[2024-09-04] MEDS ORDERED: ONDANSETRON 4 MG/2 ML VIAL IVP PRN (22:28)
[2024-09-04] MEDS ORDERED: ACETAMINOPHEN TAB 325 MG TAB PO PRN (22:28)
[2024-09-04] MEDS ORDERED: LORazepam 0.5 MG TAB PO PRN ×2 (22:28→22:31)
[2024-09-04] MEDS ORDERED: NALOXONE 0.4 MG/ML 1 ML VIAL IV PRN (22:28)
[2024-09-04] MEDS ORDERED: traMADol 50 MG TAB PO PRN (22:31)
[2024-09-04] MEDS ORDERED: HYDROcodone/APAP 10-325MG 1 EACH TAB PO PRN (22:31)
[2024-09-04] MEDS: GABAPENTIN 400 MG CAP PO SCH (23:42)
[2024-09-04] MEDS: METOPROLOL SUCCINATE (ER) 50 MG TAB.ER.24H PO SCH (23:43)
[2024-09-04] MEDS: DONEPEZIL 10 MG TAB PO SCH (23:43)
[2024-09-04] MEDS: ATORVASTATIN 20 MG TAB PO SCH (23:44)
[2024-09-04] MEDS: POTASSIUM BICARBONATE/CIT AC 20 MEQ TABLET.EFF PO ONE (23:45)
[2024-09-04] MEDS: APIXABAN 5 MG TAB PO SCH (23:45)
[2024-09-05] MEDS ORDERED: ENOXAPARIN 40 MG/0.4 ML SYRINGE SQ SCH (09:00)
[2024-09-05] MEDS ORDERED: FAMOTIDINE 20 MG TAB PO SCH (09:00)
[2024-09-05] MEDS ORDERED: UBIDECARENONE 100 MG PO SCH (09:00)
[2024-09-05] MEDS: ASPIRIN 81 MG PO SCH (09:12)
[2024-09-05] MEDS: PANTOPRAZOLE 40 MG TABLET PO SCH (09:12)
[2024-09-05] MEDS: CARBIDOPA-LEVODOPA 25-100 MG 1 EACH TAB PO SCH (09:12)
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
[2024-09-05] MEDS: MELOXICAM 7.5 MG TAB PO SCH (12:31)
[2024-09-05] MEDS: POTASSIUM CHLORIDE ER 20 MEQ TAB.ER PO STA (12:31)
[2024-09-05] MEDS: TAMSULOSIN 0.4 MG CAP.ER.24H PO SCH (17:37)
[2024-09-06] MEDS ORDERED: Magnesium Replacement Protocol 1 EACH MISC MISCELLANE PRN (14:26)
[2024-09-06] MEDS ORDERED: Potassium Replacement Protocol 1 EACH MISC MISCELLANE PRN (14:26)
[2024-09-06 15:11] VITALS: BMI 23.8
[2024-09-06 15:16] LABS: Basophils # (A) 0.04 10*3/uL (0.00-0.10); Basophils % (A) 0.8 %; Eosinophils # (A) 0.03 10*3/uL (0.04-0.35); Eosinophils % (A) 0.6 %; HCT 39.6 % (39.6-50.0); HGB 12.9 g/dL (13.0-17.0); Lymphocytes # (A) 0.92 10*3/uL (0.90-5.00); Lymphocytes % (A) 19.3 %; MCH 29.0 pg (27.0-32.0); MCHC 32.6 g/dL (32.0-37.0); MCV 89.0 fL (80.0-97.0); Monocytes # (A) 0.41 10*3/uL (0.20-1.00); Monocytes % (A) 8.6 %; Neutrophils # (A) 3.37 10*3/uL (1.80-7.70); Neutrophils % (A) 70.7 %; Platelet Count 218 10*3/uL (140-440); RBC 4.45 10*6/uL (4.40-5.60); RDW 14.0 % (11.5-14.5); WBC 4.77 10*3/uL (4.50-10.00)
[2024-09-06 15:39] LABS: African American GFR (CKD) >90 (>60 ml/min/1.73 sqM); Anion Gap 5 mmol/L; Blood Urea Nitrogen 19 mg/dL (9-20); Calcium 9.7 mg/dL (8.4-10.2); Carbon Dioxide 27 mmol/L (22-30); Chloride 107 mmol/L (98-107); Glucose 108 mg/dL (74-99); Non-African American GFR(CKD) >90 (>60 ml/min/1.73 sqM); Potassium 3.7 mmol/L (3.5-5.1); Sodium 139 mmol/L (137-145)
--- NOTE | 2024-09-06 16:00 | PN ---
PROGRESS NOTE DATE OF SERVICE: 09/06/2024 SUBJECTIVE: This is a 74-year-old gentleman admitted with dementia with aggressive behavior, is improving significantly. No chest pain. No palpitations. The patient is confused. PHYSICAL EXAMINATION: VITAL SIGNS: Pulse 69, blood pressure 111/70, and respirations 17. CHEST: Clear to auscultation. CARDIOVASCULAR: S1, S2. ABDOMEN: Soft. NERVOUS SYSTEM: Diffusely weak. LABORATORY DATA: Potassium 3.3, rest of the labs are noted. ASSESSMENT: 1. Dementia with behavioral abnormalities. 2. Parkinson's with tremors. 3. Paroxysmal atrial fibrillation. 4. Multiple complex medical issues. RECOMMENDATIONS AND DISCUSSION: Recommend to continue current management and continue symptomatic treatment. Otherwise use p.r.n. Haldol. Recommend PT/OT evaluation and continue to monitor as well. Prognosis guarded. MMODL / IJN: [id number] /
[2024-09-07] MEDS: HYDROcodone/APAP 5-325MG 1 EACH TAB PO PRN (09:30)
[2024-09-07 09:56] LABS: Basophils # (A) 0.04 X 10*3/uL (0.00-0.10); Basophils % (A) 0.8 %; Eosinophils # (A) 0.05 X 10*3/uL (0.04-0.35); Eosinophils % (A) 1.0 %; HCT 42.4 % (39.6-50.0); HGB 13.2 g/dL (13.0-17.0); Immature Grans, Automated 0.20 %; Lymphocytes # (A) 0.80 X 10*3/uL (0.90-5.00); Lymphocytes % (A) 15.3 %; MCH 28.0 pg (27.0-32.0); MCHC 31.1 g/dL (32.0-37.0); MCV 89.8 FL (80.0-97.0); Monocytes # (A) 0.48 X 10*3/uL (0.20-1.00); Monocytes % (A) 9.2 %; NRBC Per 100 WBC 0 X 10*3/uL (0.00-0.01); Neutrophils # (A) 3.85 X 10*3/uL (1.80-7.70); Neutrophils % (A) 73.5 %; Platelet Count 230 X 10*3/uL (140-440); RBC 4.72 X 10*6/uL (4.40-5.60); RDW 14.0 % (11.5-14.5); WBC 5.23 X 10*3/uL (4.50-10.00)
[2024-09-07 10:18] LABS: Anion Gap 10.30 mmol/L (4.00-12.00); BUN/Creat Ratio 26.14 Ratio (12.00-20.00); Blood Urea Nitrogen 18.3 mg/dL (9.0-27.0); Calcium 9.7 mg/dL (8.7-10.3); Carbon Dioxide 25.7 mmol/L (21.6-31.8); Chloride 109 mmol/L (96-109); Glucose 97 mg/dL (70-110); Magnesium 2.1 mg/dL (1.5-2.4); Potassium 4.0 mmol/L (3.5-5.5); Sodium 145 mmol/L (135-145)
[2024-09-07 20:45] LABS: Glucose,Whole Blood 100 mg/dL (70-110)
--- NOTE | 2024-09-07 22:21 | PN ---
PROGRESS NOTE DATE OF SERVICE: 09/07/2024 SUBJECTIVE: This 74-year-old gentleman was admitted with dementia with behavioral abnormalities, improving significantly. No chest pain. No palpitation. The patient is still mildly confused. OBJECTIVE: VITAL SIGNS: Pulse 66, blood pressure 94/60, and respirations 16. CHEST: Clear to auscultation. CARDIOVASCULAR: S1, S2. ABDOMEN: Soft. LABORATORY DATA: Reviewed. ASSESSMENT: 1. Dementia with behavior abnormalities. 2. Parkinson's with tremors. 3. Paroxysmal atrial fibrillation. 4. Multiple complex medical issues. 5. Hypotension. RECOMMENDATIONS AND DISCUSSION: Recommend to continue current management and continue symptomatic treatment. Otherwise, we will recommend evaluation by Case Management and category planner for possible discharge in the next 24 hours. The patient is medically stable at this time. MMODL / IJN: [id number] /
[2024-09-07] MEDS: QUEtiapine 25 MG TAB PO PRN (22:29)
[2024-09-08] MEDS: HALOPERIDOL LACTATE 5 MG/ML 1 ML VIAL IM PRN (22:35)
--- NOTE | 2024-09-09 05:23 | P.PN ---
Subjective Progress Note Date: 09/08/24 This is a 74-year-old male who was recently admitted with dementia with behavioral problems improving significantly and is at baseline and per nursing staff has been pleasant and cooperative. Case management/social work following working on discharge planning to possible AFC and/or ECF. Patient is afebrile with no reported chest pain or shortness of breath. Patient has been tolerating diet and encouraged oral intake. Review of systems: Unable to completely assess as patient is sleeping at this t irene. PHYSICAL EXAMINATION: GENERAL: The patient is alert and oriented x1, Well developed, elderly appearing, thin built, cachectic HEENT: Pupils are round and equally reacting to light. EOMI. no scleral icterus. No conjunctival pallor. Normocephalic, atraumatic. No pharyngeal erythema. No thyromegaly. CARDIOVASCULAR: S1 and S2 muffled PULMONARY: diminished breath sounds bilaterally with no wheezing or rhonchi noted. ABDOMEN: soft. Nontender on exam. Thin, non-distended, normoactive bowel sounds. No palpable organomegaly. MUSCULOSKELETAL: No joint swelling or deformity. EXTREMITIES: No cyanosis, clubbing, or pedal edema. NEUROLOGICAL: Gross neurological examination did not reveal any focal deficits. SKIN: No rashes. Assessment: Dementia with behavioral abnormalities Parkinson's with tremors History of paroxysmal atrial fibrillation Hypotension, improved with history of hypertension Osteoarthritis History of chronic back pain History of sleep apnea with no CPAP History of depression GI prophylaxis DVT prophylaxis Full code Plan: Recommend to continue with current medications and supportive care. Case management/social work following working on discharge planning either to AFC or ECF possibly with a memory care unit Encourage oral intake Encouraged increase activity as tolerated Will discuss with case management/social work regarding possible discharge planning in the next 24 hours as we are waiting on an accepting ECF for discharge Due to multiple complex medical issues, overall prognosis is guarded The impression and plan of care has been dictated by Violeta Patel, nurse practitioner as directed. Dr. Bentley MD I have performed a history and examination and MDM of this patient, discussed the same with the dictator, and agree with the dictator's assessment and plan as written ,documented as a scribe. Based on total visit time, I have performed more than 50% of the visit. Any additional findings or plans will be noted. Objective - Vital Signs Vital signs: Vital Signs Temp 97.6 F 07/01/25 01:28 Pulse 75 09/09/24 01:28 Resp 16 09/09/24 01:28 BP 104/72 09/09/24 01:28 Pulse Ox 98 09/09/24 01:28 FiO2 Intake & Output 09/08/24 09/08/24 09/09/24 06:59 18:59 06:59 Output Total 123 650 300 Balance -123 -650 -300 Output: Urine 650 Post Void Residual 123 Stool 300 Other: Voiding Method Diaper Diaper # Voids 0 1 - Labs CBC & Chem 7: 09/07/24 04:35 09/07/24 04:35
[2024-09-09 08:14] LABS: African American GFR (CKD) >90 (>60 ml/min/1.73 sqM); Anion Gap 8 mmol/L; Blood Urea Nitrogen 28 mg/dL (9-20); Calcium 9.7 mg/dL (8.4-10.2); Carbon Dioxide 27 mmol/L (22-30); Chloride 109 mmol/L (98-107); Glucose 96 mg/dL (74-99); Non-African American GFR(CKD) 87 (>60 ml/min/1.73 sqM); Potassium 3.9 mmol/L (3.5-5.1); Sodium 144 mmol/L (137-145)
--- NOTE | 2024-09-09 11:24 | P.DS ---
Providers Date of admission: 09/04/24 22:28 Expected date of discharge: 09/09/24 Attending physician: Sussy Hagan Primary care physician: Carlos Pedroza [facility] Course: Final diagnosis Dementia with behavioral abnormalities Parkinson's with tremors History of paroxysmal atrial fibrillation Hypotension, improved with history of hypertension Osteoarthritis History of chronic back pain History of sleep apnea with no CPAP History of depression GI prophylaxis DVT prophylaxis Full code Discharge disposition Patient is being discharged in a stable condition with guarded prognosis to [facility] in [place]. Patient will follow-up with Dr. Pedroza in the outpatient setting upon discharge. . Total time taken is greater than 35 minutes. Hospital course This is a 74-year-old male who was recently admitted with dementia with wors ening behavioral abnormalities treated medically and medically stable awaiting placement. Patient has been accepted at [facility] memory care unit and will be discharged today. Patient to follow-up with primary care provider on discharge. Currently no reports of chest pain, shortness of breath, or palpitations. Patient is afebrile. No reports of nausea or vomiting and patient is tolerating diet. Patient will be going to [facility] in [place] today. Overall guarded prognosis Physical exam: Gen: This is a 74-year-old male who is awake, alert and oriented x 1-2, well- developed, elderly appearing, thin built HEENT: Head is atraumatic, normocephalic. Pupils equal, round. Sclerae is anicteric. NECK: Supple. No JVD. No lymphadenopathy. No thyromegaly. LUNGS: Clear to auscultation. No wheezes or rhonchi. No intercostal retractions. HEART: Regular rate and rhythm. No murmur. ABDOMEN: Soft. Bowel sounds are present. No masses. No tenderness. EXTREMITIES: No pedal edema. No calf tenderness. NEUROLOGICAL: Patient is awake, alert and oriented x3. Cranial nerves 2 through 12 are grossly intact. Please refer to medication reconciliation sheet for a list of medications. The impression and plan of care has been dictated by Violeta Patel, Nurse Practitioner as directed. MD Sae I have performed a history and examination and MDM of this patient, discussed the same with the dictator, and agree with the dictator's assessment and plan as written ,documented as a scribe. Based on total visit time, I have performed more than 50% of the visit. Patient Condition at Discharge: Stable Plan - Discharge Summary Discharge Rx Participant: No New Discharge Prescriptions: No Action HYDROcodone/APAP 10-325MG [[place] 10-325] 1 tab PO TID PRN PRN Reason: Pain LORazepam [Ativan] 0.25 - 0.5 mg PO HS PRN PRN Reason: Anxiety Donepezil HCl [Aricept] 10 mg PO HS Carbidopa-Levodopa 25-100 mg [Sinemet 25-100 mg] 2.5 tab PO QID traMADol HCL 50 mg PO Q12H PRN PRN Reason: Pain Gabapentin 400 mg PO BID Atorvastatin [Lipitor] 20 mg PO HS Aspirin EC [Ecotrin Low Dose] 81 mg PO DAILY Apixaban [Eliquis] 5 mg PO BID #0 Metoprolol Succinate (ER) [Toprol Xl] 50 mg PO BID Pantoprazole [Protonix] 40 mg PO DAILY Ubidecarenone [Coenzyme Q-10] 100 mg PO DAILY Discharge Medication List HYDROcodone/APAP 10-325MG [[place] 10-325] 1 tab PO TID PRN 04/02/14 [History] Aspirin EC [Ecotrin Low Dose] 81 mg PO DAILY 08/27/23 [History] Atorvastatin [Lipitor] 20 mg PO HS 08/27/23 [History] Carbidopa-Levodopa 25-100 mg [Sinemet 25-100 mg] 2.5 tab PO QID 08/27/23 [History] Donepezil HCl [Aricept] 10 mg PO HS 08/27/23 [History] Gabapentin 400 mg PO BID 08/27/23 [History] LORazepam [Ativan] 0.25 - 0.5 mg PO HS PRN 08/27/23 [History] Apixaban [Eliquis] 5 mg PO BID #0 08/29/23 [Rx] Metoprolol Succinate (ER) [Toprol Xl] 50 mg PO BID 09/04/24 [History] Pantoprazole [Protonix] 40 mg PO DAILY 09/04/24 [History] Ubidecarenone [Coenzyme Q-10] 100 mg PO DAILY 09/04/24 [History] traMADol HCL 50 mg PO Q12H PRN 09/04/24 [History] Follow up Appointment(s)/Referral(s): Carlos Pedroza DO [Primary Care Provider] - 1-2 days
[2024-09-09 13:20] VITALS: BP 170/91; PULSE 68; RESP 16; TEMP 97.7
== END 2024-09-09 14:44 ==
LOC: EC 18:26 → 5NMEDONC 22:28
PROVIDERS: ADMIT Hospitalist; ATTEND Hospitalist
DX: G20.A1 Parkinson's disease without dyskinesia, without mention of fluctuations (principal); F02.811 Dementia in other diseases classified elsewhere, unspecified severity, with agitation; I95.9 Hypotension, unspecified; I48.0 Paroxysmal atrial fibrillation; E78.5 Hyperlipidemia, unspecified; I10 Essential (primary) hypertension; G47.30 Sleep apnea, unspecified; F32.A Depression, unspecified; M19.90 Unspecified osteoarthritis, unspecified site; G89.29 Other chronic pain; M54.9 Dorsalgia, unspecified; Z85.46 Personal history of malignant neoplasm of prostate; Z87.891 Personal history of nicotine dependence; Z79.01 Long term (current) use of anticoagulants; Z79.82 Long term (current) use of aspirin; Z79.899 Other long term (current) drug therapy
CPT/HCPCS: 96372; 99285; 36415; 93005; 97530; 97162; 97167; 80053; 80048 ×3; 83735; 84484; 85025 ×3; 85610; 85730; 81003; 70450; G0378 ×6; J1630

== ENCOUNTER 2024-09-22 20:41 | Emergency (ER) | payer MEDICARE ==
[2024-09-22 20:47] VITALS: TEMP 98
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
[2024-09-22 23:42] LABS: Basophils # (A) 0.07 10*3/uL (0.00-0.10); Basophils % (A) 1.9 %; Eosinophils # (A) 0.08 10*3/uL (0.04-0.35); Eosinophils % (A) 2.2 %; HCT 30.8 % (39.6-50.0); Lymphocytes # (A) 1.07 10*3/uL (0.90-5.00); Lymphocytes % (A) 29.1 %; MCH 28.9 pg (27.0-32.0); MCHC 32.5 g/dL (32.0-37.0); MCV 89.0 fL (80.0-97.0); Monocytes # (A) 0.35 10*3/uL (0.20-1.00); Monocytes % (A) 9.5 %; Neutrophils # (A) 2.10 10*3/uL (1.80-7.70); Neutrophils % (A) 57.0 %; Platelet Count 223 10*3/uL (140-440); RBC 3.46 10*6/uL (4.40-5.60); RDW 14.1 % (11.5-14.5); WBC 3.68 10*3/uL (4.50-10.00)
[2024-09-23 00:08] LABS: HGB 10.0 g/dL (13.0-17.0)
[2024-09-23 00:09] LABS: ALT 9 U/L (4-49); AST 49 U/L (17-59); African American GFR (CKD) >90 (>60 ml/min/1.73 sqM); Albumin 3.9 g/dL (3.5-5.0); Alkaline Phosphatase 82 U/L (38-126); Anion Gap 7 mmol/L; Blood Urea Nitrogen 31 mg/dL (9-20); Calcium 9.9 mg/dL (8.4-10.2); Carbon Dioxide 28 mmol/L (22-30); Chloride 105 mmol/L (98-107); Glucose 91 mg/dL (74-99); Lipase 108 U/L (23-300); Non-African American GFR(CKD) >90 (>60 ml/min/1.73 sqM); Potassium 3.7 mmol/L (3.5-5.1); Sodium 140 mmol/L (137-145); Total Protein 6.2 g/dL (6.3-8.2)
[2024-09-23 00:10] LABS: INR 1.1 (<1.2); Partial Thromboplastin Time 28.7 sec (22.0-30.0); Prothrombin Time 11.7 sec (10.0-12.5)
--- NOTE | 2024-09-23 01:48 | CT ---
EXAM: CT Abdomen and Pelvis With Intravenous Contrast CLINICAL HISTORY: ITS.REASON CT Reason: LLQ pain, pelvic ecchymosis TECHNIQUE: Axial computed tomography images of the abdomen and pelvis with intravenous contrast. CTDI is 18.13 mGy and DLP is 824 mGy-cm. This CT exam was performed using one or more of the following dose reduction techniques: automated exposure control, adjustment of the mA and/or kV according to patient size, and/or use of iterative reconstruction technique. COMPARISON: No relevant prior studies available. FINDINGS: Lung bases: Unremarkable. No mass. No consolidation. ABDOMEN: Liver: Unremarkable. No mass. Gallbladder and bile ducts: Cholelithiasis. No ductal dilation. Pancreas: Unremarkable. No mass. No ductal dilation. Spleen: Unremarkable. No splenomegaly. Adrenals: Unremarkable. No mass. Kidneys and ureters: Unremarkable. No solid mass. No hydronephrosis. Stomach and bowel: Unremarkable. No obstruction. No mucosal thickening. PELVIS: Appendix: No findings to suggest acute appendicitis. Bladder: Unremarkable. No mass. Reproductive: Unremarkable as visualized. ABDOMEN and PELVIS: Intraperitoneal space: Unremarkable. No free air. No significant fluid collection. Bones/joints: No acute fracture of dislocation. Soft tissues: Right gluteus aj intramuscular hematoma. Right hip subcutaneous edema. Vasculature: Bilateral common iliac vein stents. No abdominal aortic aneurysm. Lymph nodes: Unremarkable. No enlarged lymph nodes. IMPRESSION: 1. No acute fracture of dislocation. 2. Right gluteus aj intramuscular hematoma. Right hip subcutaneous edema.
[2024-09-23 02:33] VITALS: BP 140/92; PULSE 81; RESP 18
[2024-09-23 03:15] LABS: Bilirubin,Urine Negative (Negative); Blood,Urine Negative (Negative); Color,Urine Yellow; Glucose,Urine (UA) Negative (Negative); Ketones,Urine Negative (Negative); Leukocyte Esterase,Urine Large (Negative); Mucus,Urine Occasional /hpf; Nitrite,Urine Negative (Negative); PH, Urine 6.0 (5.0-8.0); Protein,Urine Trace (Negative); RBC,Urine 19 /hpf (0-5); Squamous Epithelial Cell,Urine 2 /hpf (0-4); Urobilinogen,Urine 6.0 mg/dL (<2.0); WBC,Urine 24 /hpf (0-5)
[2024-09-23 03:30] LABS: Specific Gravity,Urine 1.050 (1.001-1.035)
== END 2024-09-23 02:33 | disposition home or self-care (01) ==
LOC: EC 20:41
DX: S30.0XXA Contusion of lower back and pelvis, initial encounter (principal); D68.9 Coagulation defect, unspecified; Z87.891 Personal history of nicotine dependence
CPT/HCPCS: 36415; 74177; 80053; 81001; 83605; 83690; 85025; 85610; 85730; 87086; 93005; 99284